=== PATIENT | female | born 1930 | race Two or more races ===

== ENCOUNTER 2016-11-27 10:30 | Inpatient (IN) | payer MEDICARE, BC ==
[2016-11-27 13:49] LABS: Hematocrit 38 % (35-47); Hemoglobin 12.7 g/dl (12.0-16.0); Mean Corpuscular HGB Conc 33 g/dl (31-36); Mean Corpuscular Hemoglobin 34 pg (27-31); Mean Corpuscular Volume 101 fL (80-97); Mean Platelet Volume 10 um3 (7.4-10.4); Red Blood Count 3.79 10^6/ul (4.0-5.4); Red Cell Distribution Width 14 % (10.5-15)
--- NOTE | 2016-11-27 13:58 | RAD ---
INDICATION: Short of breath COMPARISON: April 13, 2010 TECHNIQUE: An AP portable view obtained at 1335 hours is submitted. FINDINGS: Bones/Soft Tissues: There are no acute bony findings. Cardiomediastinal: The cardiomediastinal silhouette is normal. Lungs: There is coarsening of interstitium. In part this is accentuated by shallow inspiratory effort. There is likely a component of mild interstitial congestion. Pleura: The spinal smaller subpleural effusion. Other: There is an apparent right-sided subdiaphragmatic lucency which could represent some diaphragmatic free air although this could also be related to lung marking. Initially suggest decubitus imaging of the abdomen. IMPRESSION: EXPIRATORY EXAMINATION WITH COARSENING OF INTERSTITIUM AND SUSPECTED MILD INTERSTITIAL CONGESTION. APPARENT RIGHT-SIDED SUBDIAPHRAGMATIC LUCENCY VERSUS ARTIFACT. SUGGEST DECUBITUS IMAGING OF THE ABDOMEN.
[2016-11-27 14:02] LABS: Albumin 3.8 g/dL (3.2-5.2); BUN/Creatinine Ratio 28.4 (8-20); C Reactive Protein 130.51 mg/L (< 5.00); Calcium 10.5 mg/dL (8.6-10.3); EGFR African American 86.4 (>60); EGFR Non-African American 67.2 (>60); Globulin 3.8 g/dL (2-4); Potassium 3.7 mmol/L (3.5-5.0); Total Bilirubin 1.1 mg/dL (0.2-1.0); Total Protein 7.6 g/dL (6.4-8.9)
[2016-11-27 14:03] LABS: Troponin I 0.03 ng/mL (<0.04)
[2016-11-27] MEDS ORDERED: Magnesium Sulfate 2 GM IV* 2 GM/50 ML BAG IVPB ONE (14:14)
[2016-11-27 14:57] LABS: Urine Bacteria 3+ (Absent); Urine Bilirubin Negative (Negative); Urine Glucose Negative (Negative); Urine Nitrite Negative (Negative)
--- NOTE | 2016-11-27 15:00 | RAD ---
HISTORY: Question free air, shortness of breath COMPARISONS: Chest film dated November 27, 2016 TECHNIQUE: Multiple contiguous axial CT scans were obtained of the chest, abdomen, and pelvis, without intravenous contrast enhancement. Coronal and sagittal multiplanar reformations are submitted for review.. Oral contrast was not administered. FINDINGS: The study is limited by the lack of intravenous contrast. This limits evaluation of the solid organs and vasculature. CHEST NECK AND THYROID: The lower neck and thyroid are unremarkable. CHEST WALL: There is no lower cervical, axillary, or supraclavicular lymphadenopathy by size criteria. HEART AND PERICARDIUM: The heart is unremarkable. AORTA AND PULMONARY VASCULATURE: There is calcification of the thoracic aorta. The pulmonary vasculature is unremarkable. MEDIASTINUM: There is no mediastinal lymphadenopathy by size criteria. ALECIA: Evaluation of the alecia is limited by the lack of intravenous contrast. There is no obvious hilar lymphadenopathy by size criteria. AIRWAY AND ESOPHAGUS: The airway is unremarkable, without endobronchial filling defect. The esophagus is grossly normal. LUNG PARENCHYMA: The lung volumes are low. There is minimal dependent atelectasis of the right lung base. PLEURA: There is elevation of the right hemidiaphragm. BONES AND SOFT TISSUES: There is diffuse osteopenia. There is a compression deformity of T6. There is no skin or osseous retropulsion. There is a scoliotic curvature of the spine ABDOMEN/PELVIS: LIVER: The liver is normal in shape, size, contour, and attenuation. BILE DUCTS: There is no intrahepatic or extrahepatic biliary dilatation. GALLBLADDER: The gallbladder is normal, without pericholecystic inflammatory change. PANCREAS: The pancreas is normal, without mass or ductal dilatation. SPLEEN: Normal in size and appearance. UPPER GI TRACT: Evaluation of the gastrointestinal tract is limited by incomplete gastric distention. The upper GI tract is unremarkable. SMALL BOWEL \T\ MESENTERY: The small bowel is normal in contour, course, and caliber. There is no obstruction or dilatation. COLON: The colon is normal in contour, course, caliber. There is no pericolonic inflammatory change. There is large stool within colon. ADRENALS: Normal bilaterally. KIDNEYS: The kidneys are normal in shape, size, contour, and axis. There is no hydronephrosis or nephrolithiasis. BLADDER: The bladder is smooth in contour. PELVIC ORGANS: The uterus and adnexa are grossly normal for technique. AORTA: There is calcific atherosclerotic disease of the abdominal aorta and its branches, without aneurysmal dilatation IVC: Unremarkable LYMPH NODES: There is no lymphadenopathy by size criteria. ABDOMINAL WALL: There is a right inguinal hernia containing loops of small bowel. BONES: There are bilateral pars defects at L5 with grade 2 anterolisthesis. There is a scoliotic curvature of the spine. There is diffuse osteopenia. There are diffuse degenerative changes. OTHER: There is no free intraperitoneal gas. IMPRESSION: 1. NO FREE INTRAPERITONEAL GAS. 2. DEPENDENT ATELECTASIS OF THE RIGHT LUNG BASE COULD 3. ELEVATION OF THE RIGHT HEMIDIAPHRAGM SUGGESTIVE OF DIAPHRAGMATIC PARALYSIS. 4. ATHEROSCLEROSIS. 5. RIGHT INGUINAL HERNIA CONTAINING LOOPS OF SMALL BOWEL, WITHOUT OBSTRUCTION. 6. LARGE AMOUNT OF STOOL WITHIN THE COLON. 7. 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 8. AGE-INDETERMINATE COMPRESSION DEFORMITY OF T6 WITHOUT SIGNIFICANT OSSEOUS RETROPULSION.
--- NOTE | 2016-11-27 15:38 | ED ---
Jolly Granger SooYoung, scribed for Peter Santiago MD on 11/27/16 at 1320 . Shortness of Breath - HPI Summary HPI Summary: A 86 y/o F presents to ED with c/o acute on chronic SOB onset past two days. She notes SOB being worse yesterday than today. Denies CP. She states her daughters wanted her to be looked at. She had a L rib injury occurring in October. Shes' had difficulty breathing since then and limited ROM of LUE. She also has limited use of RUE. Pt recently changed her heart medication. PMHx: afib, negative for: COPD, emphasema, asthma. Pt is not on home O2. - History of Current Complaint Chief Complaint: EDDysrhythmPalp Time Seen by Provider: 11/27/16 13:11 Hx Obtained From: Patient Onset/Duration: Lasting Days, Still Present - Allergy/Home Medications Allergies/Adverse Reactions: Allergies Allergy/AdvReac Type Severity Reaction Status Date / Time No Known Allergies Allergy Verified 11/27/16 10:30 Home Medications: Home Medications Acetaminophen [Acetaminophen Extra Stren] 500 mg PO BID PRN 11/27/16 [History Confirmed 11/27/16] Furosemide TAB* [Lasix TAB*] 20 mg PO DAILY 11/27/16 [History Confirmed 11/27/16 ] Rivaroxaban TAB(*) [Xarelto 20 mg] 20 mg PO DAILY 11/27/16 [History Confirmed ] PMH/Surg Hx/FS Hx/Imm Hx Previously Healthy: No Endocrine/Hematology History: Denies: Hx Diabetes, Hx Thyroid Disease Cardiovascular History: Reports: Hx Hypertension Respiratory History: Denies: Hx Asthma, Hx Chronic Obstructive Pulmonary Disease (COPD) GI History: Denies: Hx Ulcer - Surgical History Surgery Procedure, Year, and Place: HYSTERECTOMY. VERICOSE VEIN SURGERY - SEVERAL TIMES Infectious Disease History: No Infectious Disease History: Denies: Hx Clostridium Difficile, Hx Hepatitis, Hx Human Immunodeficiency Virus (HIV), Hx of Known/Suspected MRSA, Hx Shingles, Hx Tuberculosis, Hx Known/ Suspected VRE, Hx Known/Suspected VRSA, History Other Infectious Disease, Traveled Outside the [place] in Last 30 Days - Family History Known Family History: Positive: Cardiac Disease - Social History Occupation: Retired Lives: With Family Alcohol Use: Daily Alcohol Amount: 1-2 MIX DRINKS PER DAY Substance Use Type: Reports: None Smoking Status (MU): Never Smoked Tobacco Review of Systems Negative: Chest Pain Positive: Shortness Of Breath All Other Systems Reviewed And Are Negative: Yes Physical Exam - Summary Physical Exam Summary: Hermilo: well-appearing, no pain distress, LEANING TO RIGHT Skin: warm, skin color reflects, dry Head/Face: nml head/face inspection Eyes: EOMI, SONALI ENT: nml Neck: supple, non-tender Resp: CTA, breath sounds present, MILD RESPIRATORY DISTRESS Cardio: TACHY, IRREGULARLY IRREGULAR Abd: nontender, soft Bowel: present Musc: nml, strength/ROM intact, PEDAL EDEMA Neuro: nml, sensory/motor intact, A&O x 3 Psych: affect/mood appropriate Triage Information Reviewed: Yes Vital Signs On Initial Exam: Initial Vitals Temp Pulse Resp BP Pulse Ox 97.8 F 104 20 135/76 90 11/27/16 10:31 11/27/16 10:31 11/27/16 10:31 11/27/16 10:31 11/27/16 10:31 Vital Signs Reviewed: Yes Diagnostics - Vital Signs Vital Signs Temp Pulse Resp BP Pulse Ox 11/27/16 11:39 99.3 F 115 18 145/91 94 11/27/16 10:31 97.8 F 104 20 135/76 90 - Laboratory Lab Results: Lab Results 11/27/16 11/27/16 11/27/16 Range/Units 13:07 13:07 13:07 WBC 9.0 (3.5-10.8) 10^3/ul RBC 3.79 L (4.0-5.4) 10^6/ul Hgb 12.7 (12.0-16.0) g/dl Hct 38 (35-47) % MCV 101 H (80-97) fL MCH 34 H (27-31) pg MCHC 33 (31-36) g/dl RDW 14 (10.5-15) % Plt Count 214 (150-450) 10^3/ul MPV 10 (7.4-10.4) um3 Neut % (Auto) 80.4 (38-83) % Lymph % (Auto) 7.2 L (25-47) % [place] % (Auto) 12.2 H (1-9) % Eos % (Auto) 0 (0-6) % Baso % (Auto) 0.2 (0-2) % Absolute Neuts (auto) 7.2 (1.5-7.7) 10^3/ul Absolute Lymphs (auto) 0.6 L (1.0-4.8) 10^3/ul Absolute Monos (auto) 1.1 H (0-0.8) 10^3/ul Absolute Eos (auto) 0 (0-0.6) 10^3/ul Absolute Basos (auto) 0 (0-0.2) 10^3/ul Absolute Nucleated RBC 0 10^3/ul Nucleated RBC % 0 INR (Anticoag Therapy) 3.39 H (0.89-1.11) APTT 48.2 H (26.0-36.3) seconds D-Dimer, Quantitative 533 H (Less Than 230) ng/mL Sodium 134 (133-145) mmol/L Potassium 3.7 (3.5-5.0) mmol/L Chloride 92 L (101-111) mmol/L Carbon Dioxide 34 H (22-32) mmol/L Anion Gap 8 (2-11) mmol/L BUN 23 (6-24) mg/dL Creatinine 0.81 (0.51-0.95) mg/dL Est GFR ( Amer) 86.4 (>60) Est GFR (Non-Af Amer) 67.2 (>60) BUN/Creatinine Ratio 28.4 H (8-20) Glucose 112 H (70-100) mg/dL Lactic Acid (0.5-2.0) mmol/L Calcium 10.5 H (8.6-10.3) mg/dL Magnesium 1.0 L (1.9-2.7) mg/dL Total Bilirubin 1.10 H (0.2-1.0) mg/dL AST 22 (13-39) U/L ALT 16 (7-52) U/L Alkaline Phosphatase 172 H (34-104) U/L Total Creatine Kinase 85 (10-223) U/L CK-MB (CK-2) 5.5 (0.6-6.3) ng/mL Troponin I 0.03 (<0.04) ng/mL C-Reactive Protein 130.51 H (< 5.00) mg/L B-Natriuretic Peptide ( - 100) pg/mL Total Protein 7.6 (6.4-8.9) g/dL Albumin 3.8 (3.2-5.2) g/dL Globulin 3.8 (2-4) g/dL Albumin/Globulin Ratio 1.0 (1-3) Lipase 28 (11.0-82.0) U/L TSH 1.00 (0.34-5.60) mcIU/mL Urine Color Urine Appearance Urine pH (5-9) Ur Specific [place] (1.010-1.030) Urine Protein (Negative) Urine Ketones (Negative) Urine Blood (Negative) Urine Nitrate (Negative) Urine Bilirubin (Negative) Urine Urobilinogen (Negative) Ur Leukocyte Esterase (Negative) Urine WBC (Auto) (Absent) Urine RBC (Auto) (Absent) Ur Squamous Epith Cells (Absent) Urine Bacteria (Absent) Urine Glucose (Negative) 11/27/16 11/27/16 11/27/16 Range/Units 13:07 13:07 14:45 WBC (3.5-10.8) 10^3/ul RBC (4.0-5.4) 10^6/ul Hgb (12.0-16.0) g/dl Hct (35-47) % MCV (80-97) fL MCH (27-31) pg MCHC (31-36) g/dl RDW (10.5-15) % Plt Count (150-450) 10^3/ul MPV (7.4-10.4) um3 Neut % (Auto) (38-83) % Lymph % (Auto) (25-47) % [place] % (Auto) (1-9) % Eos % (Auto) (0-6) % Baso % (Auto) (0-2) % Absolute Neuts (auto) (1.5-7.7) 10^3/ul Absolute Lymphs (auto) (1.0-4.8) 10^3/ul Absolute Monos (auto) (0-0.8) 10^3/ul Absolute Eos (auto) (0-0.6) 10^3/ul Absolute Basos (auto) (0-0.2) 10^3/ul Absolute Nucleated RBC 10^3/ul Nucleated RBC % INR (Anticoag Therapy) (0.89-1.11) APTT (26.0-36.3) seconds D-Dimer, Quantitative (Less Than 230) ng/mL Sodium (133-145) mmol/L Potassium (3.5-5.0) mmol/L Chloride (101-111) mmol/L Carbon Dioxide (22-32) mmol/L Anion Gap (2-11) mmol/L BUN (6-24) mg/dL Creatinine (0.51-0.95) mg/dL Est GFR ( Amer) (>60) Est GFR (Non-Af Amer) (>60) BUN/Creatinine Ratio (8-20) Glucose (70-100) mg/dL Lactic Acid 1.3 (0.5-2.0) mmol/L Calcium (8.6-10.3) mg/dL Magnesium (1.9-2.7) mg/dL Total Bilirubin (0.2-1.0) mg/dL AST (13-39) U/L ALT (7-52) U/L Alkaline Phosphatase (34-104) U/L Total Creatine Kinase (10-223) U/L CK-MB (CK-2) (0.6-6.3) ng/mL Troponin I (<0.04) ng/mL C-Reactive Protein (< 5.00) mg/L B-Natriuretic Peptide 279 H ( - 100) pg/mL Total Protein (6.4-8.9) g/dL Albumin (3.2-5.2) g/dL Globulin (2-4) g/dL Albumin/Globulin Ratio (1-3) Lipase (11.0-82.0) U/L TSH (0.34-5.60) mcIU/mL Urine Color Sara Urine Appearance Cloudy Urine pH 5.0 (5-9) Ur Specific [place] 1.025 (1.010-1.030) Urine Protein 2+(100 mg/dl) H (Negative) Urine Ketones Negative (Negative) Urine Blood 1+ H (Negative) Urine Nitrate Negative (Negative) Urine Bilirubin Negative (Negative) Urine Urobilinogen Negative (Negative) Ur Leukocyte Esterase 2+ H (Negative) Urine WBC (Auto) 2+(11-20/hpf) H (Absent) Urine RBC (Auto) Absent (Absent) Ur Squamous Epith Cells Present H (Absent) Urine Bacteria 3+ H (Absent) Urine Glucose Negative (Negative) Result Diagrams: 11/27/16 13:07 11/27/16 13:07 Lab Statement: Any lab studies that have been ordered have been reviewed, and results considered in the medical decision making process. - Radiology CXR Xray Interpretation: Positive (See Comments) - IMPRESSION: EXPIRATORY EXAMINATION WITH COARSENING OF INTERSTITIUM AND SUSPECTED MILD INTERSTITIAL CONGESTION. APPARENT RIGHT-SIDED SUBDIAPHRAGMATIC LUCENCY VERSUS ARTIFACT. SUGGEST DECUBITUS IMAGING OF THE ABDOMEN. Radiology Interpretation Completed By: Radiologist - EKG 1 ST Segment: Normal EKG Interpretation: Rapid afib, 109 bpm, Course/Dx - Course Assessment/Plan: ADMIT HOSPITALIST STABLE. - Diagnoses Provider Diagnoses: UTI (urinary tract infection), Weakness, Dyspnea, Thoracic compression fracture - Physician Notifications Discussed Care of Patient With: Dr. Castillo, hospitalist Time Discussed With Above Provider: 14:15 Instructed by Provider To: Admit As Inpatient Discharge - Discharge Plan Condition: Stable Disposition: ADMITTED TO [facility] Referrals: Danyell De La Garza MD [Primary Care Provider] - The documentation as recorded by the Jolly griffith SooYoung accurately reflects the service I personally performed and the decisions made by me, Peter Santiago MD.
[2016-11-27] MEDS ORDERED: Acetaminophen TAB* 325 MG PO PRN (16:08)
[2016-11-27] MEDS ORDERED: Ondansetron INJ* 2 MG/ML VIAL IV PRN (16:08)
[2016-11-27] MEDS ORDERED: Metoprolol Tartrate TAB* 25 MG PO ONE (16:09)
[2016-11-27] MEDS ORDERED: Senna TAB PO PRN (16:12)
[2016-11-27] MEDS ORDERED: Docusate CAP* 100 MG PO PRN (16:12)
[2016-11-27] MEDS ORDERED: Metoprolol Tartrate IV* 1 MG/ML 5 ML VIAL IV PRN ×2 (16:21→20:00)
[2016-11-27] MEDS: cefTRIAXone VIAL(*) 1,000 MG in NS 0.9% 50 ML* 50 ML IVPB SCH (17:16)
--- NOTE | 2016-11-27 21:23 | HP ---
ADMISSION HISTORY AND PHYSICAL: DATE OF ADMISSION: 11/27/16 PRIMARY CARE PROVIDER: Danyell De La Garza MD HEALTHCARE PROXY: . CODE STATUS: Full, discussed with the patient and her . SOURCE OF INFORMATION: History obtained from interview with the patient and her . RELIABILITY: Poor. CHIEF COMPLAINT: Shortness of breath. HISTORY OF PRESENT ILLNESS: This is an 86-year-old female with past medical history of atrial fibrillation, reported several weeks of increasing shortness of breath that was worse today. She reports a fall last night after walking out of the bathroom, tried to sit on the couch, but sat in the wrong place. She is unable to relay any other specific symptoms that are bothering her. She has had no urinary frequency, hesitancy or dysuria. She denies any cough, sputum production, fevers, chills, night sweats, nausea, vomiting, or changes in her p.o. intake. She does note that she has been eating less. She denies any recent changes in her medication except for change from Coumadin to a NOAC. When seen by this author in the emergency room, she had no complaints, denied shortness of breath, although would not compare her breathing symptoms now to when she decided to come to the emergency room. Her reports that they called the clinic who advised them to come to the emergency room, although they could not indicate whether this was Dr. Danyell De La Garza's clinic who advised them to come to the emergency room and for what symptoms other than increasing shortness of breath over the last several weeks. PAST MEDICAL HISTORY: Atrial fibrillation, history of total abdominal hysterectomy, and varicose vein. MEDICATIONS: Uses [facility] in [place]. HOME MEDICATIONS: Include: 1. Xarelto 20 mg daily. 2. Ramipril 10 mg daily. 3. Metoprolol succinate XL 50 mg daily. 4. Lasix 20 mg daily. 5. Acetaminophen 500 mg twice daily as needed for pain. ALLERGIES: No known drug allergies. FAMILY HISTORY: Sister had CAD, mother had ovarian cancer. SOCIAL HISTORY: No tobacco. Drinks less than one alcoholic drink per day. Lives at home with her . REVIEW OF SYSTEMS: As per HPI, largely inconsistent. Otherwise, all others are negative. PHYSICAL EXAMINATION GENERAL: Elderly woman, sitting up in bed, in no apparent distress, talkative, talking in complete sentences, does not use accessory muscles for respiration. VITAL SIGNS: When seen by this author 163/102, heart rate 95, respiratory rate of 22, 100% on 2 L face mask titrated down from 4 L. HEENT: Oropharynx is clear. Moist mucous membranes. Sclerae anicteric. LUNGS: Clear to auscultation throughout. HEART: She has an irregularly irregular tachycardic heart rate. ABDOMEN: Soft, mildly distended, nontender. Positive bowel sounds. EXTREMITIES: Warm and well perfused. She has 2+ lower extremity edema to above the knees. She is alert and oriented x2 to person and place, but not year. Largely has difficulty following the direction of the conversation. DIAGNOSTIC STUDIES/LAB DATA: Labs reviewed. Urine is positive for protein, blood, leukocyte esterase, white blood cells and 3+ bacteria as well as squamous epithelial cells. BUN is 23, creatinine is 0.81, glucose 112. Total magnesium 1.0, repleted in the emergency room. CRP is 130 with BNP of 279. INR is 3.39. D- dimer is 533, on Xarelto. Hemoglobin 12.7, platelets 214, white blood cell count 9. Data reviewed: EKG: Atrial fibrillation with a ventricular rate of 109. No ST or T-wave changes. CT of the chest, abdomen and pelvis. Impression: No free intraperitoneal gas. Dependent atelectasis of the right lung base. Elevation of the right hemidiaphragm suggested diaphragmatic paralysis. Atherosclerosis. Right inguinal hernia containing loops of small bowel without obstruction. A large amount of stool within the colon. Bilateral pars defect at L5 with grade 2 anterolisthesis of L5- S1. Age indeterminate compression deformity of the T6 without significant serious retropulsion. ASSESSMENT AND PLAN: This is an 86-year-old female with past medical history of atrial fibrillation, presented to the hospital with increasing shortness of breath. Findings as indicated above. 1. Shortness of breath, potentially atelectasis versus consolidation versus congestive heart failure in the setting of atrial fibrillation. Diaphragmatic paralysis possibly contributing in the setting of deconditioning. It could be new. Original chest x-ray was consistent with congestive heart failure. CAT scan was consistent. We will continue with home Lasix at this time without additional dosing now. Check transthoracic echocardiogram for further evaluation. We will try for tighter control of her heart rate to optimize forward flow. Treat her with ceftriaxone for potential consolidation as well as potential urinary source. Doubt pulmonary embolism in the setting of Xarelto use as well as supratherapeutic INR on Xarelto, recently transitioned from Coumadin. 2. Urinary tract infection. Contaminated with squamous epithelial cells, although still appears consistent. Has no symptoms, although might not expect in this age range. Ceftriaxone as above. 3. Atrial fibrillation. Continue 50 mg of metoprolol succinate, add additional 25 mg tartrate now. Additional IV if needed. Target rate less than 120. 4. Lower extremity swelling. It has been longstanding, suspect in the setting of congestive heart failure. Continue Lasix as above and wrap bilateral lower extremities in Mike bandages. 5. Constipation as evidenced on CAT scan. Start Colace and senna. 6. Physical deconditioning with recent fall. PT evaluation. 7. DVT prophylaxis, Xarelto. 8. Code status is full. Discussed with patient. CC: Danyell De La Garza MD * [id number]/CPS #: [id number] MTDD
[2016-11-28] MEDS: Ramipril CAP* 10 MG PO SCH (08:43)
[2016-11-28] MEDS: Furosemide TAB* 20 MG PO SCH (08:43)
[2016-11-28] MEDS: Rivaroxaban TAB(*) 20 MG TAB PO SCH (08:43)
[2016-11-28] MEDS ORDERED: Metoprolol Succinate XL TAB* 50 MG PO SCH (09:00)
--- NOTE | 2016-11-28 15:25 | ECHO ---
Patient: MIAN MOSQUEDA [facility] Rec#: [id number] : 1930 Date: 11/28/2016 Age: 86y Height: 160.02 cm / 63.0 in Weight: 64.86 kg / 143.0 lbs Sex: F BSA: 1.68 Room#: [facility] Admit Date#: 11/27/2016 Type: Inpatient Referring: Jorje Castillo MD Reading: uSkhwinder Upton MD Cosmetic Consultant: Cydney Carrillo Cosmetic Consultant: Shalini Vo RN RDCS CC: Danyell De La Garza MD Transthoracic Echocardiogram Indication: CHF, Dyspnea BP: 132/97 HR: 107 Rhythm: A-Fib Findings History: A-Fib. Technical Comments: The study is technically limited due to patient body habitus. The study was technically limited due to the patient's inability to lay in the left lateral decubitus position. Completed at 1455. Left Ventricle: The left ventricular chamber size is normal. There is normal left ventricular systolic function. The estimated ejection fraction is 55-60%. There is septal flattening of the interventricular septum consistent with right ventricular volume or pressure overload. The assessment of diastolic function is non-diagnostic. Left Atrium: The left atrium is mild to moderately dilated. Right Ventricle: The right ventricle is mildly dilated. The right ventricular global systolic function is mildly reduced. Right Atrium: The right atrium is moderately dilated. Aortic Valve: The aortic valve is trileaflet. The aortic valve leaflets are mildly thickened. There is trace to mild aortic regurgitation. There is no evidence of aortic stenosis. Mitral Valve: There is mitral annular calcification. The mitral valve leaflets are moderately thickened. There is moderate mitral regurgitation. There is no evidence of mitral stenosis. Tricuspid Valve: The tricuspid valve leaflets are mildly thickened. There is mild to moderate tricuspid regurgitation. There is evidence of moderate pulmonary hypertension. There is no tricuspid stenosis. Pulmonic Valve: The pulmonic valve appears normal. There is trace to mild pulmonic regurgitation. There is no pulmonic stenosis. Pericardium: There is no significant pericardial effusion. Aorta: There is borderline dilatation of the ascending aorta. The aortic arch is not well visualized. There is no dilation of the aortic root. Pulmonary Artery: The main pulmonary artery is not well visualized. Venous: The inferior vena cava appears normal in size. There is less than 50% respiratory change in the inferior vena cava dimension. Summary: There are no significant changes when compared to the previous study done on 11/09/15 Conclusions There is normal left ventricular systolic function. The estimated ejection fraction is 55-60%. There is septal flattening of the interventricular septum consistent with right ventricular volume or pressure overload. The right ventricular global systolic function is mildly reduced. The aortic valve leaflets are mildly thickened. There is trace to mild aortic regurgitation. The mitral valve leaflets are moderately thickened. There is moderate mitral regurgitation. There is mild to moderate tricuspid regurgitation. There is evidence of moderate pulmonary hypertension. There is no significant pericardial effusion. There are no significant changes when compared to the previous study done on 11/09/15 Measurements Name Value Normal Range RVDdMajor (2D) 4.8 cm (2.2 - 4.4) RAd ISD 4CH 6 cm (3.4 - 4.9) RA (A4C)W 5.8 cm (2.9 - 4.6) IVSd (2D) 0.9 cm (0.6 - 1) LVPWd (2D) 0.9 cm (0.6 - 1) LVIDd (2D) 4.4 cm (3.6 - 5.4) LVIDs (2D) 2.8 cm - LV FS (2D) 36 % (25 - 45) Aortic Annulus 2 cm (1.4 - 2.6) Ao root diameter (2D) 2.6 cm (2.1 - 3.5) Ascending Ao 3.4 cm (2.1 - 3.4) LA dimension (AP) 2D 4.5 cm (2.3 - 3.8) LAd ISD 4CH 5.7 cm (2.9 - 5.3) LA ISD 4CH W 4 cm (2.5 - 4.5) Name Value Normal Range LA ESV SP 4CH (A/L) 61 ml - LA ESV SP 2CH (A/L) 72 ml - LA ESV BP (A/L) 69 ml - LA ESV BP (A/L) index 41 ml/m2 - LA ESV SP 4CH (MOD) 56 ml - LA ESV SP 2CH (MOD) 66 ml - Name Value Normal Range MV E-wave Vmax 0.9 m/sec - MV deceleration time 119 msec - LV septal e' Vmax 0.08 m/sec - LV lateral e' Vmax 0.16 m/sec - LV E:e' septal ratio 11.3 ratio - LV E:e' lateral ratio 5.6 ratio - Name Value Normal Range AV Vmax 0.9 m/sec - AV VTI 14.49 cm - AV peak gradient 3.29 mmHg - AV mean gradient 2.52 mmHg - LVOT Vmax 0.7 m/sec - LVOT VTI 12.07 cm - LVOT peak gradient 1.91 mmHg - LVOT mean gradient 1.02 mmHg - Name Value Normal Range TR Vmax 3.1 m/sec - TR peak gradient 38 mmHg - RAP 8 mmHg - RVSP 46 mmHg - IVC diameter 2.1 cm - Name Value Normal Range PV Vmax 0.6 m/sec - PV peak gradient 1.2 mmHg -
[2016-11-28] MEDS: cefTRIAXone VIAL(*) 1,000 MG in NS 0.9% 50 ML* 50 ML IVPB SCH (16:37)
--- NOTE | 2016-11-28 16:39 | PN ---
Subjective Date of Service: 11/28/16 Interval History: Patient seen and examined at bedside. Family at bedside. Her daughter reports that patient sustained a fall approx 1 month ago and has experienced back pain. There is concern for increased SOB. Patient states, "I don't know why they made me come" though she admits to not using O2 at home. She denies CP, SOB at rest, abd pain, n/v. She has BLE edema that she thinks "looks normal." Tele: Afib 100s-110s Family History: Unchanged from Admission Social History: Unchanged from Admission Past Medical History: Unchanged from Admission Objective Active Medications: Acetaminophen (Tylenol Tab*) 650 mg PO Q6H PRN PRN Reason: PAIN Docusate Sodium (Colace Cap*) 200 mg PO DAILY PRN PRN Reason: CONSTIPATION Furosemide (Lasix Tab*) 20 mg PO DAILY [facility] Last Admin: 11/28/16 08:43 Dose: 20 mg Ceftriaxone Sodium 1,000 mg/ (Sodium Chloride) 50 mls @ 200 mls/hr IVPB Q24H [facility] Last Admin: 11/27/16 17:16 Dose: 200 mls/hr Metoprolol Succinate (Toprol Xl Tab*) 50 mg PO DAILY [facility] Last Admin: 11/28/16 08:43 Dose: 50 mg Metoprolol Tartrate (Lopressor Iv*) 5 mg IV Q6H PRN PRN Reason: HEART RATE/PULSE Ondansetron HCl (Zofran Inj*) 4 mg IV Q4H PRN PRN Reason: NAUSEA Ramipril (Altace Cap*) 10 mg PO DAILY [facility] Last Admin: 11/28/16 08:43 Dose: 10 mg Rivaroxaban (Xarelto (*)) 20 mg PO DAILY [facility] Last Admin: 11/28/16 08:43 Dose: 20 mg Senna (Senokot Tab*) 1 tab PO BEDTIME PRN PRN Reason: CONSTIPATION Vital Signs 11/27/16 11/27/16 11/27/16 17:00 17:30 18:20 Temperature 98.1 F Pulse Rate 113 131 103 Respiratory 30 26 22 Rate Blood Pressure 128/109 173/85 137/81 (mmHg) O2 Sat by Pulse 96 99 100 Oximetry 11/27/16 11/27/16 11/27/16 18:48 18:56 20:00 Temperature Pulse Rate Respiratory 22 22 22 Rate Blood Pressure (mmHg) O2 Sat by Pulse Oximetry 11/27/16 11/27/16 11/28/16 20:06 23:45 03:37 Temperature 98.1 F 98.3 F 97.3 F Pulse Rate 137 93 112 Respiratory 18 16 18 Rate Blood Pressure 135/82 136/80 125/69 (mmHg) O2 Sat by Pulse 98 100 100 Oximetry 11/28/16 11/28/16 11/28/16 07:16 07:50 11:23 Temperature 98.0 F 98.2 F Pulse Rate 95 100 Respiratory 16 20 16 Rate Blood Pressure 132/79 106/70 (mmHg) O2 Sat by Pulse 100 100 Oximetry 11/28/16 11/28/16 14:48 15:17 Temperature 98.3 F Pulse Rate 97 Respiratory 20 Rate Blood Pressure 124/78 (mmHg) O2 Sat by Pulse 97 99 Oximetry Oxygen Devices in Use Now: Nasal Cannula - 2Lnc Eyes: PERRLA Ears/Nose/Mouth/Throat: Clear Oropharnyx, Mucous Membranes Moist Neck: NL Appearance and Movements; NL JVP Respiratory: Symmetrical Chest Expansion and Respiratory Effort, Clear to Auscultation Cardiovascular: NL Sounds; No Murmurs; No JVD - irregularly irregular, tachycardic, - - 2+ BLE edema Abdominal: NL Sounds; No Tenderness; No Distention Extremities: No Clubbing, Cyanosis Skin: No Rash or Ulcers Neurological: - - Alert, oriented to self, place. Poor historian, unsure of insight into current situation Lines/Tubes/Other Access: Clean, Dry and Intact Peripheral IV Nutrition: Taking PO's Result Diagrams: 11/27/16 13:07 11/27/16 13:07 Additional Lab and Data: Lab Results 11/27/16 11/27/16 11/27/16 Range/Units 13:07 13:07 13:07 WBC 9.0 (3.5-10.8) 10^3/ul RBC 3.79 L (4.0-5.4) 10^6/ul Hgb 12.7 (12.0-16.0) g/dl Hct 38 (35-47) % MCV 101 H (80-97) fL MCH 34 H (27-31) pg MCHC 33 (31-36) g/dl RDW 14 (10.5-15) % Plt Count 214 (150-450) 10^3/ul MPV 10 (7.4-10.4) um3 Neut % (Auto) 80.4 (38-83) % Lymph % (Auto) 7.2 L (25-47) % Terrell % (Auto) 12.2 H (1-9) % Eos % (Auto) 0 (0-6) % Baso % (Auto) 0.2 (0-2) % Absolute Neuts (auto) 7.2 (1.5-7.7) 10^3/ul Absolute Lymphs (auto) 0.6 L (1.0-4.8) 10^3/ul Absolute Monos (auto) 1.1 H (0-0.8) 10^3/ul Absolute Eos (auto) 0 (0-0.6) 10^3/ul Absolute Basos (auto) 0 (0-0.2) 10^3/ul Absolute Nucleated RBC 0 10^3/ul Nucleated RBC % 0 INR (Anticoag Therapy) 3.39 H (0.89-1.11) APTT 48.2 H (26.0-36.3) seconds D-Dimer, Quantitative 533 H (Less Than 230) ng/mL Sodium 134 (133-145) mmol/L Potassium 3.7 (3.5-5.0) mmol/L Chloride 92 L (101-111) mmol/L Carbon Dioxide 34 H (22-32) mmol/L Anion Gap 8 (2-11) mmol/L BUN 23 (6-24) mg/dL Creatinine 0.81 (0.51-0.95) mg/dL Est GFR ( Amer) 86.4 (>60) Est GFR (Non-Af Amer) 67.2 (>60) BUN/Creatinine Ratio 28.4 H (8-20) Glucose 112 H (70-100) mg/dL Lactic Acid (0.5-2.0) mmol/L Calcium 10.5 H (8.6-10.3) mg/dL Magnesium 1.0 L (1.9-2.7) mg/dL Total Bilirubin 1.10 H (0.2-1.0) mg/dL AST 22 (13-39) U/L ALT 16 (7-52) U/L Alkaline Phosphatase 172 H (34-104) U/L Total Creatine Kinase 85 (10-223) U/L CK-MB (CK-2) 5.5 (0.6-6.3) ng/mL Troponin I 0.03 (<0.04) ng/mL C-Reactive Protein 130.51 H (< 5.00) mg/L B-Natriuretic Peptide ( - 100) pg/mL Total Protein 7.6 (6.4-8.9) g/dL Albumin 3.8 (3.2-5.2) g/dL Globulin 3.8 (2-4) g/dL Albumin/Globulin Ratio 1.0 (1-3) Lipase 28 (11.0-82.0) U/L TSH 1.00 (0.34-5.60) mcIU/mL Urine Color Urine Appearance Urine pH (5-9) Ur Specific [place] (1.010-1.030) Urine Protein (Negative) Urine Ketones (Negative) Urine Blood (Negative) Urine Nitrate (Negative) Urine Bilirubin (Negative) Urine Urobilinogen (Negative) Ur Leukocyte Esterase (Negative) Urine WBC (Auto) (Absent) Urine RBC (Auto) (Absent) Ur Squamous Epith Cells (Absent) Urine Bacteria (Absent) Urine Glucose (Negative) 11/27/16 11/27/16 11/27/16 Range/Units 13:07 13:07 14:45 WBC (3.5-10.8) 10^3/ul RBC (4.0-5.4) 10^6/ul Hgb (12.0-16.0) g/dl Hct (35-47) % MCV (80-97) fL MCH (27-31) pg MCHC (31-36) g/dl RDW (10.5-15) % Plt Count (150-450) 10^3/ul MPV (7.4-10.4) um3 Neut % (Auto) (38-83) % Lymph % (Auto) (25-47) % Terrell % (Auto) (1-9) % Eos % (Auto) (0-6) % Baso % (Auto) (0-2) % Absolute Neuts (auto) (1.5-7.7) 10^3/ul Absolute Lymphs (auto) (1.0-4.8) 10^3/ul Absolute Monos (auto) (0-0.8) 10^3/ul Absolute Eos (auto) (0-0.6) 10^3/ul Absolute Basos (auto) (0-0.2) 10^3/ul Absolute Nucleated RBC 10^3/ul Nucleated RBC % INR (Anticoag Therapy) (0.89-1.11) APTT (26.0-36.3) seconds D-Dimer, Quantitative (Less Than 230) ng/mL Sodium (133-145) mmol/L Potassium (3.5-5.0) mmol/L Chloride (101-111) mmol/L Carbon Dioxide (22-32) mmol/L Anion Gap (2-11) mmol/L BUN (6-24) mg/dL Creatinine (0.51-0.95) mg/dL Est GFR ( Amer) (>60) Est GFR (Non-Af Amer) (>60) BUN/Creatinine Ratio (8-20) Glucose (70-100) mg/dL Lactic Acid 1.3 (0.5-2.0) mmol/L Calcium (8.6-10.3) mg/dL Magnesium (1.9-2.7) mg/dL Total Bilirubin (0.2-1.0) mg/dL AST (13-39) U/L ALT (7-52) U/L Alkaline Phosphatase (34-104) U/L Total Creatine Kinase (10-223) U/L CK-MB (CK-2) (0.6-6.3) ng/mL Troponin I (<0.04) ng/mL C-Reactive Protein (< 5.00) mg/L B-Natriuretic Peptide 279 H ( - 100) pg/mL Total Protein (6.4-8.9) g/dL Albumin (3.2-5.2) g/dL Globulin (2-4) g/dL Albumin/Globulin Ratio (1-3) Lipase (11.0-82.0) U/L TSH (0.34-5.60) mcIU/mL Urine Color Sara Urine Appearance Cloudy Urine pH 5.0 (5-9) Ur Specific [place]rie 1.025 (1.010-1.030) Urine Protein 2+(100 mg/dl) H (Negative) Urine Ketones Negative (Negative) Urine Blood 1+ H (Negative) Urine Nitrate Negative (Negative) Urine Bilirubin Negative (Negative) Urine Urobilinogen Negative (Negative) Ur Leukocyte Esterase 2+ H (Negative) Urine WBC (Auto) 2+(11-20/hpf) H (Absent) Urine RBC (Auto) Absent (Absent) Ur Squamous Epith Cells Present H (Absent) Urine Bacteria 3+ H (Absent) Urine Glucose Negative (Negative) Assess/Plan/Problems-Billing Assessment: Ms. Weaver is a 86 yo female with a PMH of chronic atrial fibrillation, esophagitis, gastritis, anemia, angiodysplasia, and HTN who presented to the ED on 11/27/16 with SOB and incidental finding of UTI. - Patient Problems (1) Shortness of breath Code(s): R06.02 - SHORTNESS OF BREATH Comment: ? 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 Able to wean O2 from 4 to 2Lnc. Continue to attempt O2 weaning as she previously was not on O2. Rate control for atrial fibrillation Echo shows EF 55-60% and LV function and evidence of reduced RV systolic function. Patient's baseline weight per PCP office is 142; patient does not weigh self so unsure if any recent weight changes. Continue home furosemide dosing. (2) UTI (urinary tract infection) Comment: Urine culture growing E. coli Continue ceftriaxone. (3) Chronic atrial fibrillation Code(s): I48.2 - CHRONIC ATRIAL FIBRILLATION Comment: HR 110s to 120s mostly, while resting. May be contributing to respiratory status and CHF. Give additional 25 mg today and increase to 75 mg Toprol XL tomorrow, closely watching BP. Continue rivaroxaban. (4) Bilateral lower extremity edema Code(s): R60.0 - LOCALIZED EDEMA Comment: Continue furosemide. Daughter brought in home lymphedema sleeves, which are in place. (5) Constipation Code(s): K59.00 - CONSTIPATION, UNSPECIFIED Comment: Promote ambulation. Miralax daily. Continue prn MOM, senna, colace. (6) Physical deconditioning Code(s): R53.81 - OTHER MALAISE Comment: Secondary to back injury sustained a month ago when attempting to help up from the floor. PT/OT Supportive care (7) DVT prophylaxis Code(s): KLL3402 - Comment: Xarelto Status and Disposition: Inpatient admission. Anticipate LOS >2 days.
[2016-11-28] MEDS ORDERED: Magnesium Hydroxide LIQ* 30 ML UDC PO PRN (17:29)
[2016-11-28] MEDS ORDERED: Metoprolol Tartrate TAB* 25 MG PO ONE (17:33)
[2016-11-28] MEDS: Polyethylene Glycol 3350* 17 GM PACKET PO SCH (17:55)
[2016-11-29 05:56] LABS: Hematocrit 34 % (35-47); Hemoglobin 11.4 g/dl (12.0-16.0); Mean Corpuscular HGB Conc 33 g/dl (31-36); Mean Corpuscular Hemoglobin 34 pg (27-31); Mean Corpuscular Volume 101 fL (80-97); Mean Platelet Volume 10 um3 (7.4-10.4); Red Blood Count 3.39 10^6/ul (4.0-5.4); Red Cell Distribution Width 14 % (10.5-15); White Blood Count 6.8 10^3/ul (3.5-10.8)
[2016-11-29 06:09] LABS: Calcium 9.3 mg/dL (8.6-10.3); EGFR African American 150.8 (>60); EGFR Non-African American 117.3 (>60); Potassium 3.9 mmol/L (3.5-5.0)
[2016-11-29] MEDS ORDERED: Metoprolol Succinate XL TAB* 25 MG PO SCH (09:00)
[2016-11-29] MEDS: Polyethylene Glycol 3350* 17 GM PACKET PO SCH (11:14)
[2016-11-29] MEDS: Furosemide TAB* 20 MG PO SCH (11:15)
[2016-11-29] MEDS: Rivaroxaban TAB(*) 20 MG TAB PO SCH (11:15)
[2016-11-29] MEDS: Ramipril CAP* 10 MG PO SCH (11:15)
[2016-11-29] MEDS ORDERED: Metoprolol Tartrate TAB* 25 MG PO ONE (14:20)
[2016-11-29] MEDS ORDERED: Iohexol 350* (CONTRAST) 500 ML MDV IV ONE (16:03)
--- NOTE | 2016-11-29 16:56 | RAD ---
Indication: Evaluate for pulmonary embolus. Contrast: Administered 60.8 ml of OMNIPAQUE 350 mgi/ml CTA of the chest was performed after IV contrast administration. Coronal and sagittal reconstructed images were obtained. The pulmonary arterial tree is well opacified. There are no filling defects present to suggest pulmonary embolus. There is right lower lobe atelectasis or consolidation.. Small bilateral pleural effusions are noted. The trachea and major bronchi appear patent. No evidence of gross spiculated lesions are noted. The visualized abdominal organs are otherwise unremarkable. No mediastinal or hilar adenopathy is noted. The heart demonstrates no pericardial effusion. IMPRESSION: No evidence of pulmonary embolus is noted. There is right lower lobe consolidation or atelectasis with small pleural effusions bilaterally.
[2016-11-29] MEDS: cefTRIAXone VIAL(*) 1,000 MG in NS 0.9% 50 ML* 50 ML IVPB SCH (17:18)
--- NOTE | 2016-11-29 18:57 | PN ---
Subjective Date of Service: 11/29/16 Interval History: This is an 86 yo female with a h/o chronic afib who presented with c/o SOB. She had a rapid rate noted on admission and atelectasis on imaging with evidence of UTI. Patient has been treated by increasing her BB and continued diuresis. Patient reports that she may feel slightly better then she did at the time of admission. She is still requiring supp O2 and becomes dyspneic with routine conversation. She has not history of chronic lung disease. Objective Active Medications: Acetaminophen (Tylenol Tab*) 650 mg PO Q6H PRN PRN Reason: PAIN Docusate Sodium (Colace Cap*) 200 mg PO DAILY PRN PRN Reason: CONSTIPATION Furosemide (Lasix Tab*) 20 mg PO DAILY [facility] Last Admin: 11/29/16 11:15 Dose: 20 mg Ceftriaxone Sodium 1,000 mg/ (Sodium Chloride) 50 mls @ 200 mls/hr IVPB Q24H [facility] Last Admin: 11/29/16 17:18 Dose: 200 mls/hr Azithromycin 500 mg/ Sodium (Chloride) 250 mls @ 250 mls/hr IVPB Q24H [facility] Magnesium Hydroxide (Milk Of [place] Liq*) 30 ml PO Q6H PRN PRN Reason: CONSTIPATION Metoprolol Succinate (Toprol Xl Tab*) 100 mg PO DAILY [facility] Metoprolol Tartrate (Lopressor Iv*) 5 mg IV Q6H PRN PRN Reason: HEART RATE/PULSE Last Admin: 11/29/16 01:33 Dose: 5 mg Ondansetron HCl (Zofran Inj*) 4 mg IV Q4H PRN PRN Reason: NAUSEA Polyethylene Glycol/Electrolytes (Miralax*) 17 gm PO DAILY [facility] Last Admin: 11/29/16 11:14 Dose: 17 gm Ramipril (Altace Cap*) 10 mg PO DAILY [facility] Last Admin: 11/29/16 11:15 Dose: 10 mg Rivaroxaban (Xarelto (*)) 20 mg PO DAILY [facility] Last Admin: 11/29/16 11:15 Dose: 20 mg Senna (Senokot Tab*) 1 tab PO BEDTIME PRN PRN Reason: CONSTIPATION Vital Signs: Temp Pulse Resp BP Pulse Ox 98.2 F 100 22 131/67 98 11/29/16 15:10 11/29/16 15:10 11/29/16 15:10 11/29/16 15:10 11/29/16 15:10 Oxygen Devices in Use Now: Nasal Cannula - 2Lnc Appearance: Well appearing elderly female who becomes dyspneic with conversation Respiratory: Symmetrical Chest Expansion and Respiratory Effort, - - exam is somewhat limited, but no adventitious lung sounds appreciated Cardiovascular: NL Sounds; No Murmurs; No JVD, - - tachycardic, irreg rhythm Abdominal: NL Sounds; No Tenderness; No Distention Extremities: - - LE wrapped in SANDI wraps Skin: No Rash or Ulcers Neurological: Alert and Oriented x 3 Result Diagrams: 11/29/16 05:19 11/29/16 05:19 Additional Lab and Data: . Diagnostic Imaging: CT chest 11/27 - atelectasis R lung base Echo - LVEF 55-60%, reduced RV fxn with mod pulm HTN Tele - afib rate 100-120 CTA chest 11/29 - No PE, Consolidation of RLL v atelectasis with sm B pleural effusions Assess/Plan/Problems-Billing Assessment: Ms. Weaver is a 86 yo female with a PMH of chronic atrial fibrillation, esophagitis, gastritis, anemia, angiodysplasia, and HTN who presented to the ED on 11/27/16 with SOB and incidental finding of UTI. - Patient Problems (1) Shortness of breath Comment: ?etiology Patient remains quite dyspneic CT today shows no PE Consolidation v atelectasis in R lung base Will treat for CAP with aggressive incentive spirometry RV dysfxn and pulm HTN is puzzling, no h/o smoking or chronic lung disease, ?HARLAN , unsure if this is contributing to her acute picture Continue supp O2 (2) Chronic atrial fibrillation Comment: With rapid ventricular response HR still 100-120, while resting. May be contributing to respiratory status and CHF. Give additional 25 mg today and increase to 100 mg Toprol XL tomorrow, remains normotensive Continue rivaroxaban. (3) Pulmonary hypertension Comment: Unsure of chronicity or etiology No h/o lung dz Perhaps untreated HARLAN or restrictive lung process d/t her kyphosis No PE on CTA (4) UTI (urinary tract infection) Comment: Urine culture growing E. coli Continue ceftriaxone. (5) Bilateral lower extremity edema Comment: Continue furosemide and LE compression Status and Disposition: Continue inpatient hospital stay, anticipate additional 2+ days of hospital stay
[2016-11-29] MEDS: Azithromycin IV(*) 500 MG in NS 0.9% 250 ML* 250 ML IVPB SCH (21:18)
[2016-11-30] MEDS: Ramipril CAP* 10 MG PO SCH (09:56)
[2016-11-30] MEDS: Polyethylene Glycol 3350* 17 GM PACKET PO SCH (09:56)
[2016-11-30] MEDS: Rivaroxaban TAB(*) 20 MG TAB PO SCH (09:57)
[2016-11-30] MEDS: Metoprolol Succinate XL TAB* 100 MG PO SCH (09:57)
[2016-11-30] MEDS: Furosemide TAB* 20 MG PO SCH (09:57)
[2016-11-30] MEDS: Diltiazem CD CAP* 120 MG PO SCH (13:58)
--- NOTE | 2016-11-30 15:55 | PN ---
Subjective Date of Service: 11/30/16 Interval History: Patient reports some improvement in dyspnea. She denies significant cough. Remains afebrile. She denies CP or palp. No n/v or abdominal pain. No new symptoms Objective Active Medications: Acetaminophen (Tylenol Tab*) 650 mg PO Q6H PRN PRN Reason: PAIN Diltiazem HCl (Cardizem Cd Cap*) 120 mg PO DAILY [facility] Last Admin: 11/30/16 13:58 Dose: 120 mg Docusate Sodium (Colace Cap*) 200 mg PO DAILY PRN PRN Reason: CONSTIPATION Furosemide (Lasix Tab*) 20 mg PO DAILY [facility] Last Admin: 11/30/16 09:57 Dose: 20 mg Ceftriaxone Sodium 1,000 mg/ (Sodium Chloride) 50 mls @ 200 mls/hr IVPB Q24H [facility] Last Admin: 11/29/16 17:18 Dose: 200 mls/hr Azithromycin 500 mg/ Sodium (Chloride) 250 mls @ 250 mls/hr IVPB Q24H [facility] Last Admin: 11/29/16 21:18 Dose: 250 mls/hr Magnesium Hydroxide (Milk Of SCHEDitfidel Liq*) 30 ml PO Q6H PRN PRN Reason: CONSTIPATION Metoprolol Succinate (Toprol Xl Tab*) 100 mg PO DAILY [facility] Last Admin: 11/30/16 09:57 Dose: 100 mg Metoprolol Tartrate (Lopressor Iv*) 5 mg IV Q6H PRN PRN Reason: HEART RATE/PULSE Last Admin: 11/29/16 01:33 Dose: 5 mg Ondansetron HCl (Zofran Inj*) 4 mg IV Q4H PRN PRN Reason: NAUSEA Polyethylene Glycol/Electrolytes (Miralax*) 17 gm PO DAILY [facility] Last Admin: 11/30/16 09:56 Dose: 17 gm Ramipril (Altace Cap*) 10 mg PO DAILY [facility] Last Admin: 11/30/16 09:56 Dose: 10 mg Rivaroxaban (Xarelto (*)) 20 mg PO DAILY [facility] Last Admin: 11/30/16 09:57 Dose: 20 mg Senna (Senokot Tab*) 1 tab PO BEDTIME PRN PRN Reason: CONSTIPATION Vital Signs: Temp Pulse Resp BP Pulse Ox 98 F 76 21 122/63 97 11/30/16 15:30 11/30/16 15:30 11/30/16 15:30 11/30/16 15:30 11/30/16 15:30 Oxygen Devices in Use Now: Nasal Cannula - 2Lnc Appearance: Elderly female with severe kyphosis in NAD Eyes: No Scleral Icterus Neck: NL Appearance and Movements; NL JVP Respiratory: Symmetrical Chest Expansion and Respiratory Effort, - - noted very poor inspiratory force and little air movement Cardiovascular: NL Sounds; No Murmurs; No JVD Extremities: - - LE covered in SANDI wraps Skin: No Rash or Ulcers Neurological: Alert and Oriented x 3 Result Diagrams: 11/29/16 05:19 11/29/16 05:19 Additional Lab and Data: . Diagnostic Imaging: CT chest 11/27 - atelectasis R lung base Echo - LVEF 55-60%, reduced RV fxn with mod pulm HTN Tele - afib rate ~100 CTA chest 11/29 - No PE, Consolidation of RLL v atelectasis with sm B pleural effusions Assess/Plan/Problems-Billing Assessment: Ms. Weaver is a 86 yo female with a PMH of chronic atrial fibrillation, esophagitis, gastritis, anemia, angiodysplasia, and HTN who presented to the ED on 11/27/16 with SOB and incidental finding of UTI. Repeat suggests presence of PNU. - Patient Problems (1) CAP (community acquired pneumonia) Comment: RLL consolidation noted on repeat CT with associated atelectasis Treating for CAP Still quite dyspneic and using 3L supp O2, but maintaining sats in high 90s, this can likely be titrated down Her kyphosis contributes to her poor inspiratory effort. Encourged her to continue to use the flutter valve and incentive spirometer (2) Chronic atrial fibrillation Comment: With rapid ventricular response HR still ~100, while resting. May be contributing to respiratory status and CHF. Increased metoprolol, will add diltiazem for additional rate control, still normotensive Continue rivaroxaban. (3) Pulmonary hypertension Comment: Unsure of chronicity or etiology No h/o lung dz Perhaps untreated HARLAN or restrictive lung process d/t her kyphosis No PE on CTA (4) UTI (urinary tract infection) Comment: Urine culture grew pansensitive E Coli Continue ceftriaxone. Recommend total of 5 days of treatment (5) Bilateral lower extremity edema Comment: Continue furosemide and LE compression Status and Disposition: Continue inpatient hospital stay, anticipate additional 2+ days of hospital stay
[2016-11-30] MEDS: cefTRIAXone VIAL(*) 1,000 MG in NS 0.9% 50 ML* 50 ML IVPB SCH (16:13)
[2016-11-30] MEDS: Azithromycin IV(*) 500 MG in NS 0.9% 250 ML* 250 ML IVPB SCH (21:15)
[2016-12-01 05:34] LABS: Hematocrit 35 % (35-47); Hemoglobin 11.4 g/dl (12.0-16.0); Mean Corpuscular HGB Conc 32 g/dl (31-36); Mean Corpuscular Hemoglobin 33 pg (27-31); Mean Corpuscular Volume 103 fL (80-97); Mean Platelet Volume 10 um3 (7.4-10.4); Red Blood Count 3.41 10^6/ul (4.0-5.4); Red Cell Distribution Width 14 % (10.5-15); White Blood Count 6.6 10^3/ul (3.5-10.8)
[2016-12-01 05:53] LABS: BUN/Creatinine Ratio 26.2 (8-20); C Reactive Protein 35.61 mg/L (< 5.00); Calcium 9.3 mg/dL (8.6-10.3); EGFR African American 111.4 (>60); EGFR Non-African American 86.6 (>60); Potassium 4.6 mmol/L (3.5-5.0)
[2016-12-01 09:43] LABS: Venous Bicarbonate HCO3 41.2 mmol/L (24-28)
[2016-12-01] MEDS: Furosemide TAB* 20 MG PO SCH (10:21)
[2016-12-01] MEDS: Metoprolol Succinate XL TAB* 100 MG PO SCH (10:21)
[2016-12-01] MEDS: Polyethylene Glycol 3350* 17 GM PACKET PO SCH (10:21)
[2016-12-01] MEDS: Diltiazem CD CAP* 120 MG PO SCH (10:21)
[2016-12-01] MEDS: Ramipril CAP* 10 MG PO SCH (10:21)
[2016-12-01] MEDS: Rivaroxaban TAB(*) 20 MG TAB PO SCH (10:22)
[2016-12-01] MEDS ORDERED: Magnesium CITRATE* 300 ML BTL PO ONE (12:32)
--- NOTE | 2016-12-01 15:59 | PN ---
Subjective Date of Service: 12/01/16 Interval History: Patient reports no significant changes in her respiratory symptoms. Still dyspneic. No significant cough. Objective Active Medications: Acetaminophen (Tylenol Tab*) 650 mg PO Q6H PRN PRN Reason: PAIN Diltiazem HCl (Cardizem Cd Cap*) 120 mg PO DAILY [facility] Last Admin: 12/01/16 10:21 Dose: 120 mg Docusate Sodium (Colace Cap*) 200 mg PO BID [facility] Furosemide (Lasix Tab*) 20 mg PO DAILY [facility] Last Admin: 12/01/16 10:21 Dose: 20 mg Ceftriaxone Sodium 1,000 mg/ (Sodium Chloride) 50 mls @ 200 mls/hr IVPB Q24H [facility] Last Admin: 11/30/16 16:13 Dose: 200 mls/hr Azithromycin 500 mg/ Sodium (Chloride) 250 mls @ 250 mls/hr IVPB Q24H [facility] Last Admin: 11/30/16 21:15 Dose: 250 mls/hr Magnesium Hydroxide (Milk Of Magnesia Liq*) 30 ml PO Q6H PRN PRN Reason: CONSTIPATION Last Admin: 12/01/16 13:14 Dose: 30 ml Metoprolol Succinate (Toprol Xl Tab*) 100 mg PO DAILY [facility] Last Admin: 12/01/16 10:21 Dose: 100 mg Metoprolol Tartrate (Lopressor Iv*) 5 mg IV Q6H PRN PRN Reason: HEART RATE/PULSE Last Admin: 11/29/16 01:33 Dose: 5 mg Ondansetron HCl (Zofran Inj*) 4 mg IV Q4H PRN PRN Reason: NAUSEA Polyethylene Glycol/Electrolytes (Miralax*) 17 gm PO DAILY [facility] Last Admin: 12/01/16 10:21 Dose: 17 gm Ramipril (Altace Cap*) 10 mg PO DAILY [facility] Last Admin: 12/01/16 10:21 Dose: 10 mg Rivaroxaban (Xarelto (*)) 20 mg PO DAILY [facility] Last Admin: 12/01/16 10:22 Dose: 20 mg Senna (Senokot Tab*) 1 tab PO BEDTIME [facility] Vital Signs: Temp Pulse Resp BP Pulse Ox 98.0 F 91 20 119/72 93 12/01/16 07:40 12/01/16 11:26 12/01/16 11:26 12/01/16 11:26 12/01/16 11:26 Oxygen Devices in Use Now: Nasal Cannula - 2Lnc Appearance: Well appearing elderly female in NAD eating lunch Respiratory: Symmetrical Chest Expansion and Respiratory Effort, - - still has very poor inspiratory effort. No adventitious lung sounds appreciated Cardiovascular: RRR Abdominal: NL Sounds; No Tenderness; No Distention Extremities: No Edema Skin: No Rash or Ulcers Neurological: Alert and Oriented x 3 Result Diagrams: 12/01/16 05:01 12/01/16 05:01 Additional Lab and Data: Laboratory Tests 12/01/16 09:33 VBG pH 7.30 L VBG pCO2 109 H VBG pO2 32 L VBG HCO3 41.2 H Diagnostic Imaging: CT chest 11/27 - atelectasis R lung base Echo - LVEF 55-60%, reduced RV fxn with mod pulm HTN Tele - afib rate ~100 CTA chest 11/29 - No PE, Consolidation of RLL v atelectasis with sm B pleural effusions Assess/Plan/Problems-Billing Assessment: Ms. Weaver is a 86 yo female with a PMH of chronic atrial fibrillation, esophagitis, gastritis, anemia, angiodysplasia, and HTN who presented to the ED on 11/27/16 with SOB and incidental finding of UTI. Repeat suggests presence of PNU. - Patient Problems (1) CAP (community acquired pneumonia) Comment: RLL consolidation noted on repeat CT with associated atelectasis Treating for CAP Still quite dyspneic Now with evidence of respiratory acidosis, titrating down O2 in hopes of increasing resp rate and driving down pCO2, will repeat VBG later this afternoon , if persistently acidotic, may require a short period of BiPAP Her kyphosis contributes to her poor inspiratory effort. Continuing to encourged her to continue to use the flutter valve and incentive spirometer Will repeat CXR tomorrow am (2) Chronic atrial fibrillation Comment: With rapid ventricular response HR still ~100, while resting. May be contributing to respiratory status and CHF. Increased metoprolol, will add diltiazem for additional rate control, still normotensive Continue rivaroxaban. (3) Pulmonary hypertension Comment: Unsure of chronicity or etiology No h/o lung dz Perhaps untreated HARLAN or restrictive lung process d/t her kyphosis No PE on CTA (4) UTI (urinary tract infection) Comment: Urine culture grew pansensitive E Coli Continue ceftriaxone. Recommend total of 5 days of treatment (5) Bilateral lower extremity edema Comment: Continue furosemide and LE compression Status and Disposition: Continue inpatient hospital stay, anticipate additional 2+ days of hospital stay
[2016-12-01 16:39] LABS: Venous Bicarbonate HCO3 37.8 mmol/L (24-28)
[2016-12-01] MEDS: cefTRIAXone VIAL(*) 1,000 MG in NS 0.9% 50 ML* 50 ML IVPB SCH (17:09)
[2016-12-01] MEDS: Azithromycin IV(*) 500 MG in NS 0.9% 250 ML* 250 ML IVPB SCH (19:59)
[2016-12-01] MEDS: Senna TAB PO SCH (20:01)
[2016-12-01] MEDS: Docusate CAP* 100 MG PO SCH (20:01)
[2016-12-02 04:00] LABS: Venous Bicarbonate HCO3 40.4 mmol/L (24-28)
--- NOTE | 2016-12-02 04:40 | PN ---
Progress Note - Progress Note Note: Nursing called reporting patient had not tolerated her CPAP earlier and so was placed on a nasal cannula at 2-3L later being found to be confused. VBG showed a pH of 7.2 with a pCO2 >125. While here on treatment for CAP, she has had no fevers and no leukocytosis. CTA chest 11/29/2016 was read as RLL consolidation or atelectasis. As such, will trial BiPap per NIPPV protocol and transfer to ICU.
[2016-12-02 04:47] LABS: PCO2 Arterial 116 mmHg (35-45)
--- NOTE | 2016-12-02 08:28 | PN ---
Subjective Date of Service: 12/02/16 Interval History: Patient was transferred to the ICU at ~0430 this am for acute resp failure and placed on BiPAP. She was unable to tolerate CPAP last night. She had a decline in mental status and ABG indicated severe respiratory acidosis. She has been able to tolerate BiPAP this am. Her is present. Patient is responsive to voice and touch. She offers no complaints. Objective Active Medications: Acetaminophen (Tylenol Tab*) 650 mg PO Q6H PRN PRN Reason: PAIN Diltiazem HCl (Cardizem Cd Cap*) 120 mg PO DAILY [facility] Last Admin: 12/01/16 10:21 Dose: 120 mg Docusate Sodium (Colace Cap*) 200 mg PO BID [facility] Last Admin: 12/01/16 20:01 Dose: 200 mg Furosemide (Lasix Iv*) 20 mg IV DAILY [facility] Ceftriaxone Sodium 1,000 mg/ (Sodium Chloride) 50 mls @ 200 mls/hr IVPB Q24H [facility] Last Admin: 12/01/16 17:09 Dose: 200 mls/hr Azithromycin 500 mg/ Sodium (Chloride) 250 mls @ 250 mls/hr IVPB Q24H [facility] Last Admin: 12/01/16 19:59 Dose: 250 mls/hr Magnesium Hydroxide (Milk Of Magnesia Liq*) 30 ml PO Q6H PRN PRN Reason: CONSTIPATION Last Admin: 12/01/16 13:14 Dose: 30 ml Metoprolol Succinate (Toprol Xl Tab*) 100 mg PO DAILY [facility] Last Admin: 12/01/16 10:21 Dose: 100 mg Metoprolol Tartrate (Lopressor Iv*) 5 mg IV Q6H PRN PRN Reason: HEART RATE/PULSE Last Admin: 11/29/16 01:33 Dose: 5 mg Ondansetron HCl (Zofran Inj*) 4 mg IV Q4H PRN PRN Reason: NAUSEA Polyethylene Glycol/Electrolytes (Miralax*) 17 gm PO DAILY [facility] Last Admin: 12/01/16 10:21 Dose: 17 gm Ramipril (Altace Cap*) 10 mg PO DAILY [facility] Last Admin: 12/01/16 10:21 Dose: 10 mg Rivaroxaban (Xarelto (*)) 20 mg PO DAILY [facility] Last Admin: 12/01/16 10:22 Dose: 20 mg Senna (Senokot Tab*) 1 tab PO BEDTIME [facility] Last Admin: 12/01/16 20:01 Dose: 1 tab Vital Signs: Temp Pulse Resp BP Pulse Ox 97.9 F 92 29 133/76 100 12/02/16 08:00 12/02/16 08:00 12/02/16 08:00 12/02/16 08:00 12/02/16 08:00 Oxygen Devices in Use Now: Nasal Cannula - 2Lnc Appearance: Elderly female with BiPAP in place. Accompanied by . Intermittently alert, appears comfortable Respiratory: Symmetrical Chest Expansion and Respiratory Effort, - - no adventitious lung sounds appreciated Extremities: - - LE compression stockings in place Result Diagrams: 12/01/16 05:01 12/01/16 05:01 Additional Lab and Data: Laboratory Tests 12/01/16 12/01/16 12/02/16 09:33 16:31 03:44 ABG pH ABG pCO2 ABG pO2 ABG HCO3 VBG pH 7.30 L 7.34 7.22 L VBG pCO2 109 H 86 H VBG pO2 32 L 45 41 VBG HCO3 41.2 H 37.8 H 40.4 H 12/02/16 04:30 ABG pH 7.27 L ABG pCO2 116 H* ABG pO2 74 L ABG HCO3 41.4 H* VBG pH VBG pCO2 VBG pO2 VBG HCO3 Diagnostic Imaging: CT chest 11/27 - atelectasis R lung base Echo - LVEF 55-60%, reduced RV fxn with mod pulm HTN Tele - afib rate ~100 CTA chest 11/29 - No PE, Consolidation of RLL v atelectasis with sm B pleural effusions Assess/Plan/Problems-Billing Assessment: Ms. Weaver is a 86 yo female with a PMH of chronic atrial fibrillation, esophagitis, gastritis, anemia, angiodysplasia, and HTN who presented to the ED on 11/27/16 with SOB and incidental finding of UTI. Repeat suggests presence of PNU. - Patient Problems (1) Acute respiratory failure Comment: Hypoxic and hypercarbic Now transferred to ICU on BiPAP Low tidal volumes Plan to repeat CXR, ABG, and diuress with IV Lasix this am (2) CAP (community acquired pneumonia) Comment: RLL consolidation noted on repeat CT with associated atelectasis Treating for CAP Now with acute resp failure Her kyphosis contributes to her poor inspiratory effort. (3) Chronic atrial fibrillation Comment: With rapid ventricular response, now rate controlled Increased metoprolol and added diltiazem for additional rate control, still normotensive Continue rivaroxaban. (4) Pulmonary hypertension Comment: Unsure of chronicity or etiology No h/o lung dz Perhaps untreated HARLAN or restrictive lung process d/t her kyphosis No PE on CTA (5) UTI (urinary tract infection) Comment: Urine culture grew pansensitive E Coli Continue ceftriaxone. Recommend total of 5 days of treatment (6) Bilateral lower extremity edema Comment: Continue furosemide and LE compression Status and Disposition: Now transferred to ICU, requires continued inpatient hospital care.
[2016-12-02] MEDS ORDERED: Furosemide IV* 10 MG/ML 10 ML VIAL (100 MG) IV ONE (08:38)
[2016-12-02 08:55] LABS: EPAP 6; FIO2 40; IPAP 16; Resp Rate 14
[2016-12-02] MEDS ORDERED: Furosemide IV* 10 MG/ML 10 ML VIAL (100 MG) ONE (08:56)
[2016-12-02] MEDS ORDERED: Furosemide IV* 10 MG/ML 10 ML VIAL (100 MG) IV SCH (09:00)
[2016-12-02 09:07] LABS: PCO2 Arterial 93 mmHg (35-45)
[2016-12-02] MEDS: Diltiazem CD CAP* 120 MG PO SCH ×2 (09:11→11:03)
[2016-12-02] MEDS: Docusate CAP* 100 MG PO SCH ×3 (09:11→21:24)
[2016-12-02] MEDS: Metoprolol Succinate XL TAB* 100 MG PO SCH ×2 (09:11→11:04)
[2016-12-02] MEDS: Ramipril CAP* 10 MG PO SCH ×2 (09:12→11:04)
[2016-12-02] MEDS: Rivaroxaban TAB(*) 20 MG TAB PO SCH ×2 (09:12→11:04)
--- NOTE | 2016-12-02 09:15 | RAD ---
INDICATION: Short of breath COMPARISON: Chest x-ray November 27, 2016 TECHNIQUE: An AP portable view obtained at 0030 hours is submitted. FINDINGS: Bones/Soft Tissues: There are no acute bony findings. Cardiomediastinal: The heart is normal in size. Lungs: There is chronic interstitial lung disease. There is progressive infiltrate in the right lung base with fine loss and elevation the right hemidiaphragm. Pleura: There is a small right-sided effusion. Other: None IMPRESSION: CHRONIC LUNG FINDINGS WITH PROGRESSIVE INFILTRATE RIGHT LUNG BASE AND SMALL RIGHT-SIDED EFFUSION
[2016-12-02 09:39] LABS: Hematocrit 35 % (35-47); Hemoglobin 11.3 g/dl (12.0-16.0); Mean Corpuscular HGB Conc 32 g/dl (31-36); Mean Corpuscular Hemoglobin 33 pg (27-31); Mean Corpuscular Volume 103 fL (80-97); Mean Platelet Volume 10 um3 (7.4-10.4); Red Blood Count 3.41 10^6/ul (4.0-5.4); Red Cell Distribution Width 14 % (10.5-15); White Blood Count 6.6 10^3/ul (3.5-10.8)
[2016-12-02 09:58] LABS: BUN/Creatinine Ratio 39.6 (8-20); Calcium 9.5 mg/dL (8.6-10.3); EGFR African American 158.1 (>60); EGFR Non-African American 122.9 (>60); Potassium 4.5 mmol/L (3.5-5.0)
--- NOTE | 2016-12-02 10:28 | PN ---
Hospitalist Progress Note HOSPITALIST ADDENDUM Case reviewed and d/w Nikhil MARIE. Patient evaluated at bedside. She is comfortable on BiPAP now, denies dyspnea. Agree with current therapy, but may need more invasive measures (thoracentesis, intubation with bronch). Critical care consult requested with Dr. Siddiqui. Patient wishes to be a Full code and is agreeable with a trial of aggressive measures. Will continue to monitor closely.
[2016-12-02] MEDS: Metoprolol Tartrate IV* 1 MG/ML 5 ML VIAL IV SCH ×3 (11:04→21:24)
[2016-12-02] MEDS: Polyethylene Glycol 3350* 17 GM PACKET PO SCH (11:04)
--- NOTE | 2016-12-02 13:29 | PN ---
Progress Note - Progress Note Note: Critical Care Medicine Asked to see the frail elderly female by Dr Gordon regarding her respiratory status. Patient transferred to ICU re respiratory distress and hypercapneic respiratory failure for which she has been treated with BiPAP. Patient had a CTA Chest revealing RLL consolidation and atelectasis with small pleural effusion. Whe patient seen just now, she is awake and alert. Regarding her respiratory status she acknowledges that this is the worst her breathing has been and regarding the subject of going on a a ventilator to receive life support she says she does not want this and states that she wants to be allowed to if it comes to that. She is on face mask oxygen. She is taking shallow "guppy" breaths using strap muscles. Have asked nurse to have BiPAP re-applied. She apparently received a dose of lasix earlier and has diuresed well per nurse. NKDA PMH A Fib, Hysterectomy, Varicose Veins Fam Hx CAD, Ovarian Ca Soc Hx neg tobacco, apparently has one drink a day, SBP 148 HR 95-110 irreg RR 25 SpO2 84-86 (FM) Skin no diaphoresis, no cyanosis Sclerae anicteric, pupils equal Oral mucosa pink Lungs with decreased air entry Rt lower, no wheezes Cor Irreg no rub no murmur Abd soft, nontender wesley Ext edematous WBC 6.6 Hgb 11.3 Plt 159 7.37/93/95 K 4.5 HCO3 46 BUN/Creat 19/.48 CXR RT lower one half of chest opacified IMP: Acute Hypercapneic and Hypoxemic Respiratory Failure with ongoing respiratory distress...patient saying currently she does not want to be on ventilator, does not want her BiPAP, and says she wants to be allowed to . Bedside nurse has witnessed this as well. Have notified Dr Gordon regarding this and her PA has spoken to patient and called family regarding this matter. She came to me requesting signature of ANY to reflect these issues on behalf of her service...done RLL consolidation/atelectasis Frailty with weakness Peripheral edema Compensatory metabolic alkalosis A Fib..acceptable rate all things considered at this time. PLAN/REC: Defer to Hospitalist service at this time regarding ongoing conversations with family and patient Would generally have recommended intubation of patient at time I saw her and in truth, even if intubated this time and eventually weaned and extubated, I do not forsee patient successfully breathing independent of the ventilator in the 6 months ahead. For now continue BiPAP or regular FM as tolerated/accepted Would recommend Palliative Care Consult
[2016-12-02] MEDS: cefTRIAXone VIAL(*) 1,000 MG in NS 0.9% 50 ML* 50 ML IVPB SCH (16:39)
--- NOTE | 2016-12-02 18:05 | PN ---
Hospitalist Progress Note Patient became more alert later in the day and asked for the BiPAP to be taken off and asked for no further intervention. Family arrived and discussed case in detail. Patient has decided she does NOT desire intubation, but would want cardiac resuscitation and is willing to trial BiPAP as tolerated. CXR shows worsening R sided effusion and infiltrate. Discussed utility of thoracentesis with play back operator, Dr Siddiqui, who has advised against at this time. And patient does not desire any invasive procedure. Will have her wear the BiPAP tonight. She received 60mg IV Lasix this evening with 2L output following. Will repeat ABG and CXR in am.
[2016-12-02] MEDS: Azithromycin IV(*) 500 MG in NS 0.9% 250 ML* 250 ML IVPB SCH (20:00)
[2016-12-02] MEDS: Senna TAB PO SCH (21:24)
[2016-12-03] MEDS: Metoprolol Tartrate IV* 1 MG/ML 5 ML VIAL IV SCH (03:20)
[2016-12-03 05:48] LABS: Hematocrit 36 % (35-47); Hemoglobin 11.8 g/dl (12.0-16.0); Mean Corpuscular HGB Conc 33 g/dl (31-36); Mean Corpuscular Hemoglobin 33 pg (27-31); Mean Corpuscular Volume 102 fL (80-97); Mean Platelet Volume 11 um3 (7.4-10.4); Red Blood Count 3.56 10^6/ul (4.0-5.4); Red Cell Distribution Width 14 % (10.5-15); White Blood Count 7.3 10^3/ul (3.5-10.8)
[2016-12-03 05:57] LABS: Blood Urea Nitrogen 21 mg/dL (6-24); Calcium 9.4 mg/dL (8.6-10.3); Chloride 88 mmol/L (101-111); EGFR African American 122.2 (>60); Glucose 107 mg/dL (70-100); Sodium 137 mmol/L (133-145)
[2016-12-03 06:17] LABS: CO2 Carbon Dioxide 43 mmol/L (22-32)
--- NOTE | 2016-12-03 08:02 | RAD ---
INDICATION: Right-sided effusion COMPARISON: December 02, 2016 TECHNIQUE: An AP portable view obtained at 0716 hours is submitted. FINDINGS: Bones/Soft Tissues: There are no acute bony findings. Cardiomediastinal: The cardiomediastinal silhouette is normal. The interstitium is prominent compatible with vascular congestion. Lungs: Small bibasilar infiltrates. There are chronic interstitial changes. Aeration right lung bases not improved Pleura: Small bilateral pleural effusions. The right-sided effusion appears slightly smaller. Other: Elevated right hemidiaphragm IMPRESSION: INTERSTITIAL CONGESTION. BASILAR INFILTRATES WITH SMALL BILATERAL PLEURAL EFFUSIONS. IMPROVED AERATION OF THE RIGHT LUNG BASE.
--- NOTE | 2016-12-03 08:19 | PN ---
Progress Note - Progress Note Note: [facility] Progress Note Patient on HF NC....likes this better Feels breathing is better Nurses report she was up all night in relation to dyspnea SBP 162 HR 110-115 irreg RR 34 shallow SpO2 88 (HF NC) Skin no diaphoresis, no cyanosis Sclerae anicteric, pupils equal Oral mucosa pink Back with prominent kyphosis Chest no soft tissue, skin loose over ribs Lungs with decreased air entry Rt lower chest, no wheezes Cor Irreg no rub no murmur Abd soft, nontender wesley Ext min edema, skin of legs now wrinkled, no muscle mass in arms WBC 7.3 Hgb 11.8 Plt 182 HCO3 43 BUN/Creat 21/0.6 CXR elevated Rt hemidiaphragm (can see dome of diaphragm) Performed POC US of chest ..minimal pleural fluid, very limited excursion of Rt hemidiaphragm IMP: Acute Hypercapneic and Hypoxemic Respiratory Failure with ongoing dyspnea ....RLL consolidation/atelectasis...appears resolved on CXR ....does have elevated Rt HD with very limited excursion....suspect this is chronic but have no old Xrays for comparison ....inconsequential pleural fluid ....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
[2016-12-03] MEDS ORDERED: Metoprolol Tartrate IV* 1 MG/ML 5 ML VIAL IV PRN (08:25)
--- NOTE | 2016-12-03 08:31 | PN ---
Subjective Date of Service: 12/03/16 Interval History: Patient did not tolerate BiPAP overnight, maintained on high flow. She reports improved feelings of dyspnea. Denies new complaints. Family is present. Objective Active Medications: Acetaminophen (Tylenol Tab*) 650 mg PO Q6H PRN PRN Reason: PAIN Diltiazem HCl (Cardizem Cd Cap*) 120 mg PO DAILY [facility] Last Admin: 12/02/16 11:03 Dose: Not Given Docusate Sodium (Colace Cap*) 200 mg PO BID [facility] Last Admin: 12/02/16 21:24 Dose: Not Given Furosemide (Lasix Iv*) 40 mg IV DAILY [facility] Ceftriaxone Sodium 1,000 mg/ (Sodium Chloride) 50 mls @ 200 mls/hr IVPB Q24H [facility] Last Admin: 12/02/16 16:39 Dose: 200 mls/hr Azithromycin 500 mg/ Sodium (Chloride) 250 mls @ 250 mls/hr IVPB Q24H [facility] Last Admin: 12/02/16 20:00 Dose: 250 mls/hr Magnesium Hydroxide (Milk Of [employer] Liq*) 30 ml PO Q6H PRN PRN Reason: CONSTIPATION Last Admin: 12/01/16 13:14 Dose: 30 ml Metoprolol Succinate (Toprol Xl Tab*) 100 mg PO DAILY [facility] Last Admin: 12/02/16 11:04 Dose: Not Given Metoprolol Tartrate (Lopressor Iv*) 5 mg IV Q6H PRN PRN Reason: HR > 120bpm Ondansetron HCl (Zofran Inj*) 4 mg IV Q4H PRN PRN Reason: NAUSEA Polyethylene Glycol/Electrolytes (Miralax*) 17 gm PO DAILY [facility] Last Admin: 12/02/16 11:04 Dose: Not Given Ramipril (Altace Cap*) 10 mg PO DAILY [facility] Last Admin: 12/02/16 11:04 Dose: Not Given Rivaroxaban (Xarelto (*)) 20 mg PO DAILY [facility] Last Admin: 12/02/16 11:04 Dose: Not Given Senna (Senokot Tab*) 1 tab PO BEDTIME [facility] Last Admin: 12/02/16 21:24 Dose: Not Given Vital Signs: Temp Pulse Resp BP Pulse Ox 99.0 F 100 33 147/99 94 12/03/16 06:00 12/03/16 05:00 12/03/16 06:00 12/03/16 06:00 12/03/16 05:00 Oxygen Devices in Use Now: Nasal Cannula - 2Lnc Appearance: Frail elderly female, appears improved, in NAD Respiratory: Symmetrical Chest Expansion and Respiratory Effort, - - improved air exchange, no adventitious lung sounds appreciated Cardiovascular: NL Sounds; No Murmurs; No JVD, - - irreg rate/rhythm Abdominal: NL Sounds; No Tenderness; No Distention Extremities: - - trace LE edema Skin: No Rash or Ulcers Neurological: Alert and Oriented x 3 Result Diagrams: 12/03/16 05:35 12/03/16 06:23 Additional Lab and Data: Laboratory Tests 12/01/16 12/01/16 12/02/16 09:33 16:31 03:44 ABG pH ABG pCO2 ABG pO2 ABG HCO3 VBG pH 7.30 L 7.34 7.22 L VBG pCO2 109 H 86 H VBG pO2 32 L 45 41 VBG HCO3 41.2 H 37.8 H 40.4 H 12/02/16 04:30 ABG pH 7.27 L ABG pCO2 116 H* ABG pO2 74 L ABG HCO3 41.4 H* VBG pH VBG pCO2 VBG pO2 VBG HCO3 Diagnostic Imaging: CT chest 11/27 - atelectasis R lung base Echo - LVEF 55-60%, reduced RV fxn with mod pulm HTN Tele - afib rate ~100 CTA chest 11/29 - No PE, Consolidation of RLL v atelectasis with sm B pleural effusions CXR - 12/02 - mod R pleural effusion and consolidation CXR 12/03 - improved effusion, elevated R hemidiaphragm Assess/Plan/Problems-Billing Assessment: Ms. Weaver is a 86 yo female with a PMH of chronic atrial fibrillation, esophagitis, gastritis, anemia, angiodysplasia, and HTN who presented to the ED on 11/27/16 with SOB and incidental finding of UTI. Repeat CT suggests presence of PNU now with associated effusion and acute respiratory failure. - Patient Problems (1) Acute respiratory failure Comment: Hypoxic and hypercarbic Mild improvement noted this am Patient has not tolerated BiPAP and desires limited interventions She does seem to be tolerating high flow well Repeat CXR shows improvement in R sided effusion Will continue to diuress (2) CAP (community acquired pneumonia) Comment: RLL consolidation noted on repeat CT with associated atelectasis Treating for CAP Now with acute resp failure Her kyphosis contributes to her poor inspiratory effort. (3) Chronic atrial fibrillation Comment: With rapid ventricular response, now rate controlled Increased metoprolol and added diltiazem for additional rate control, still normotensive Continue rivaroxaban. (4) Pulmonary hypertension Comment: Unsure of chronicity or etiology No h/o lung dz Perhaps untreated HARLAN or restrictive lung process d/t her kyphosis No PE on CTA (5) UTI (urinary tract infection) Comment: Urine culture grew pansensitive E Coli Continue ceftriaxone for both UTI and CAP (6) Bilateral lower extremity edema Comment: Improving Continue furosemide and LE compression (7) DNI (do not intubate) Comment: Advanced directives have been discussed in detail Family and patient have differing wishes They have agreed on CPR but DNI and trial of BiPAP Patient and family would benefit from Palliative Consult, will discuss further tomorrow Status and Disposition: Patient requires continued ICU care. Discharge plan is unknown at this time.
[2016-12-03] MEDS ORDERED: Furosemide IV* 10 MG/ML 10 ML VIAL (100 MG) IV SCH (09:00)
[2016-12-03] MEDS: Metoprolol Succinate XL TAB* 100 MG PO SCH (09:08)
[2016-12-03] MEDS: Rivaroxaban TAB(*) 20 MG TAB PO SCH (09:09)
[2016-12-03] MEDS: Diltiazem CD CAP* 120 MG PO SCH (09:10)
[2016-12-03] MEDS: Ramipril CAP* 10 MG PO SCH (09:11)
[2016-12-03] MEDS: Docusate CAP* 100 MG PO SCH ×2 (09:12→20:29)
[2016-12-03] MEDS: Furosemide IV* 10 MG/ML VIAL (40 MG) IV SCH (09:13)
[2016-12-03 10:48] LABS: Venous Bicarbonate HCO3 45.8 mmol/L (24-28)
[2016-12-03] MEDS: Polyethylene Glycol 3350* 17 GM PACKET PO SCH (15:34)
[2016-12-03] MEDS: Diltiazem TAB* 30 MG PO SCH ×2 (15:37→18:03)
[2016-12-03] MEDS: cefTRIAXone VIAL(*) 1,000 MG in NS 0.9% 50 ML* 50 ML IVPB SCH (17:26)
[2016-12-03] MEDS: Azithromycin IV(*) 500 MG in NS 0.9% 250 ML* 250 ML IVPB SCH (19:40)
[2016-12-03] MEDS: Senna TAB PO SCH (20:29)
[2016-12-04 05:36] LABS: Venous Bicarbonate HCO3 47.1 mmol/L (24-28)
[2016-12-04 05:53] LABS: BUN/Creatinine Ratio 33.9 (8-20); Calcium 9.4 mg/dL (8.6-10.3); EGFR African American 124.6 (>60); EGFR Non-African American 96.9 (>60); Potassium 3.6 mmol/L (3.5-5.0)
--- NOTE | 2016-12-04 08:23 | PN ---
Subjective Date of Service: 12/04/16 Interval History: Patient reports no changes. She is comfortable on vapotherm. Attempts to titrate down her FIO2 results in significant drop in her O2 sat to the mid 70s. She continues to deny significant cough. Remains afebrile. Objective Active Medications: Acetaminophen (Tylenol Tab*) 650 mg PO Q6H PRN PRN Reason: PAIN Diltiazem HCl (Cardizem Cd Cap*) 180 mg PO DAILY [facility] Docusate Sodium (Colace Cap*) 200 mg PO BID [facility] Last Admin: 12/03/16 20:29 Dose: Not Given Furosemide (Lasix Iv*) 40 mg IV DAILY [facility] Last Admin: 12/03/16 09:13 Dose: 40 mg Ceftriaxone Sodium 1,000 mg/ (Sodium Chloride) 50 mls @ 200 mls/hr IVPB Q24H [facility] Last Admin: 12/03/16 17:26 Dose: 200 mls/hr Azithromycin 500 mg/ Sodium (Chloride) 250 mls @ 250 mls/hr IVPB Q24H [facility] Last Admin: 12/03/16 19:40 Dose: 250 mls/hr Magnesium Hydroxide (Milk Of Magnesia Liq*) 30 ml PO Q6H PRN PRN Reason: CONSTIPATION Last Admin: 12/01/16 13:14 Dose: 30 ml Metoprolol Succinate (Toprol Xl Tab*) 100 mg PO DAILY [facility] Last Admin: 12/03/16 09:08 Dose: 100 mg Metoprolol Tartrate (Lopressor Iv*) 5 mg IV Q6H PRN PRN Reason: HR > 120bpm Ondansetron HCl (Zofran Inj*) 4 mg IV Q4H PRN PRN Reason: NAUSEA Polyethylene Glycol/Electrolytes (Miralax*) 17 gm PO DAILY [facility] Last Admin: 12/03/16 15:34 Dose: Not Given Ramipril (Altace Cap*) 10 mg PO DAILY [facility] Last Admin: 12/03/16 09:11 Dose: 10 mg Rivaroxaban (Xarelto (*)) 20 mg PO DAILY [facility] Last Admin: 12/03/16 09:09 Dose: 20 mg Senna (Senokot Tab*) 1 tab PO BEDTIME [facility] Last Admin: 12/03/16 20:29 Dose: Not Given Vital Signs: Temp Pulse Resp BP Pulse Ox 97.0 F 84 22 130/71 96 02/27/17 06:00 12/04/16 06:00 12/04/16 06:00 12/04/16 06:00 12/04/16 06:00 Oxygen Devices in Use Now: Nasal Cannula - High flow cannula in place Appearance: elderly female, slightly tachypneic in NAD Ears/Nose/Mouth/Throat: Mucous Membranes Moist Neck: NL Appearance and Movements; NL JVP Respiratory: Symmetrical Chest Expansion and Respiratory Effort, - - no adventitious lung sounds, poor inspiratory effort Cardiovascular: NL Sounds; No Murmurs; No JVD, - - irregular rhythm Extremities: No Edema Skin: No Rash or Ulcers Neurological: Alert and Oriented x 3 Result Diagrams: 12/03/16 05:35 12/04/16 05:25 Additional Lab and Data: Laboratory Tests 12/01/16 12/01/16 12/02/16 09:33 16:31 03:44 ABG pH ABG pCO2 ABG pO2 ABG HCO3 VBG pH 7.30 L 7.34 7.22 L VBG pCO2 109 H 86 H VBG pO2 32 L 45 41 VBG HCO3 41.2 H 37.8 H 40.4 H 12/02/16 04:30 ABG pH 7.27 L ABG pCO2 116 H* ABG pO2 74 L ABG HCO3 41.4 H* VBG pH VBG pCO2 VBG pO2 VBG HCO3 Laboratory Tests 12/03/16 12/04/16 10:37 05:25 VBG pH 7.39 7.38 VBG pCO2 98 H 102 H VBG pO2 40 34 L VBG HCO3 45.8 H 47.1 H Diagnostic Imaging: CT chest 11/27 - atelectasis R lung base Echo - LVEF 55-60%, reduced RV fxn with mod pulm HTN Tele - afib rate ~100 CTA chest 11/29 - No PE, Consolidation of RLL v atelectasis with sm B pleural effusions CXR - 12/02 - mod R pleural effusion and consolidation CXR 12/03 - improved effusion, elevated R hemidiaphragm CXR 12/04 - pend Assess/Plan/Problems-Billing Assessment: Ms. Weaver is a 86 yo female with a PMH of chronic atrial fibrillation, esophagitis, gastritis, anemia, angiodysplasia, and HTN who presented to the ED on 11/27/16 with SOB and incidental finding of UTI. Repeat CT suggests presence of PNU now with associated effusion and acute respiratory failure. - Patient Problems (1) Acute respiratory failure Comment: Hypoxic and hypercarbic Mild improvement noted yesterday, but no further improvement appreciated today She is unable to wean from high flow despite improvement in effusion VBG indicates further rise in pCO2, fully compensated metabolically Repeat CXR is pending this am She remains afebrile, I do not believe the difficulty with ventilation is due to an uncontrolled infectious process Limitations are more likely anatomic due to her severe kyphosis and subsequent restrictive process with very low lung volumes Patient has not tolerated BiPAP and desires limited interventions Plan to continue current interventions and discuss palliative measures with the family, which the patient is very willing to accept at this time (2) CAP (community acquired pneumonia) Comment: RLL consolidation noted on repeat CT with associated atelectasis Treating for CAP Now with acute resp failure Her kyphosis contributes to her poor inspiratory effort. (3) Chronic atrial fibrillation Comment: With rapid ventricular response, now rate controlled Increased metoprolol and added diltiazem for additional rate control, still normotensive Continue rivaroxaban. (4) Pulmonary hypertension Comment: Unsure of chronicity or etiology No h/o lung dz Perhaps untreated HARLAN or restrictive lung process d/t her kyphosis No PE on CTA (5) UTI (urinary tract infection) Comment: Urine culture grew pansensitive E Coli Continue ceftriaxone for both UTI and CAP (6) Bilateral lower extremity edema Comment: Improving Continue furosemide and LE compression (7) DNI (do not intubate) Comment: Advanced directives have been discussed in detail Family and patient have differing wishes They have agreed on CPR but DNI and trial of BiPAP Will discuss further with family today as she is not improving Status and Disposition: Patient requires continued ICU care for vapotherm. Discharge plan is unknown at this time, pending further discussion with family
[2016-12-04 08:28] LABS: C Reactive Protein 14.47 mg/L (< 5.00)
--- NOTE | 2016-12-04 09:25 | RAD ---
INDICATION: Infiltrates, follow-up. COMPARISON: Comparison is made with prior chest x-ray study from December 03, 2016. TECHNIQUE: A portable view of the chest was obtained. FINDINGS: The heart appears mildly enlarged and unchanged. The lungs are underinflated. There is mild prominence of the interstitial markings which are unchanged. There are small focal infiltrates both lung bases and a small right pleural effusion which appear unchanged. IMPRESSION: FINDINGS SUGGESTIVE OF CONGESTIVE HEART FAILURE WITH SUPERIMPOSED BIBASILAR INFILTRATES, UNCHANGED.
[2016-12-04] MEDS: Furosemide IV* 10 MG/ML VIAL (40 MG) IV SCH (09:54)
[2016-12-04] MEDS: Docusate CAP* 100 MG PO SCH ×2 (09:54→20:25)
[2016-12-04] MEDS: Polyethylene Glycol 3350* 17 GM PACKET PO SCH (09:54)
[2016-12-04] MEDS: Metoprolol Succinate XL TAB* 100 MG PO SCH (09:54)
[2016-12-04] MEDS: Diltiazem CD CAP* 180 MG PO SCH (09:54)
[2016-12-04] MEDS: Rivaroxaban TAB(*) 20 MG TAB PO SCH (09:55)
[2016-12-04] MEDS: Ramipril CAP* 10 MG PO SCH (09:55)
[2016-12-04] MEDS: Morphine INJ* 2 MG/ML 1 ML SYRINGE IV PRN ×2 (16:06→21:13)
[2016-12-04] MEDS: cefTRIAXone VIAL(*) 1,000 MG in NS 0.9% 50 ML* 50 ML IVPB SCH (16:49)
--- NOTE | 2016-12-04 17:09 | PN ---
Hospitalist Progress Note Able to review current care with patient's , Uriel, in the hospital and her daughter, Dora via phone at [phone]. CXR shows no appreciable change. Patient's family is starting to accept the need to consider palliative measures as she is not improving with our current level of support and patient does not wish for us to escalate interventions. Briefly discussed Hospice at home or SNF v comfort care in the hospital with patient's daughter. Dora will plan to discuss things with her other sister's out of state this evening as well. Requested palliative care consultation. Patient's daughter will be available tomorrow afternoon for a family meeting along with patient's , Uriel.
[2016-12-04] MEDS: Azithromycin IV(*) 500 MG in NS 0.9% 250 ML* 250 ML IVPB SCH (19:36)
[2016-12-04] MEDS: Senna TAB PO SCH (20:25)
--- NOTE | 2016-12-04 22:39 | CONS ---
PALLIATIVE CARE CONSULT REPORT: DATE OF CONSULT: 12/04/16 PRIMARY CARE PHYSICIAN: Danyell De La Garza MD REQUESTING PHYSICIAN: FRANK Mejia HOSPITAL COURSE: This is an 86-year-old female with a past medical history of atrial fibrillation and congestive heart failure, on Xarelto and Lasix, who presented to the emergency room with increasing shortness of breath. According to the patient, she has had increasing shortness of breath for several weeks and she had a fall the night prior to her admission. She was very nonspecific with her complaints on admission. On my encounter, the patient states that she has been very depressed at home. She is mostly homebound. She has been struggling and has not been doing well and she has been very tired and she states that she is ready to allow for natural . On admission, they felt that her shortness of breath was related to either consolidation or heart failure secondary to her atrial fibrillation. We started her on Lasix, antibiotics, and ordered an echocardiogram. She also had a CTA that showed right lower lobe consolidation or atelectasis with small pleural effusions bilaterally. She had a chest, abdomen, and pelvis CT that was relatively unremarkable. Her echocardiogram as well on admission showed ejection fraction 55% to 60%, moderate regurg, moderate pulmonary hypertension. The patient was diuresed and started on antibiotics on the morning of the . She was still not doing well. There was a call to the overnight hospitalist regarding tolerating her CPAP. She was placed on 2 to 3 L of nasal cannula, found to be confused, and was noted to be in hypercapnic respiratory failure. She was put on BiPAP and transferred to the ICU at that time. Her chest x-ray showed chronic lung findings with progressive infiltrate in the right lung base and small right-sided effusion. The sock boarder was consulted the following day regarding her hypoxic and hypercapnic respiratory failure where her ABG showed a pH of 7.27, PCO2 116, PO2 of 74. Her MOLST was updated to a DNI, but still a full CPR. The sock boarder felt that with her kyphosis and restrictive lung disease and her decompensation and frailty with weakness prior to admission that she would not do well intubated and tolerate a successful wean of extubation and with her tenuous respiratory status at this time, the patient appears appropriate for hospice eligibility. She is currently on the max Vapotherm settings and unable to be weaned at this time. The patient clearly indicates that she is ready to . She states she does not want to struggle any more. She is tired and she is ready to pass away. The , however, wants her daughters to get here because they do not want her to , they want her to keep fighting. I discussed that it is important to respect the patient' s wishes and the patient is willing to wait another day before stopping the Vapotherm. She is requesting to have some morphine to help with her work of breathing. She is also complaining of some left-sided chest pain. Otherwise, remaining review of systems is negative. PAST MEDICAL HISTORY: Atrial fibrillation, kyphosis, history of congestive heart failure, osteoarthritis. INPATIENT MEDICATIONS: 1. Tylenol 650 mg every 6 hours as needed. 2. Diltiazem CD 180 mg daily. 3. Colace 200 mg p.o. b.i.d. 4. Lasix 40 mg IV daily. 5. Magnesium hydroxide 30 mL p.o. q.6 hours as needed. 6. Metoprolol succinate 100 mg daily. 7. Metoprolol tartrate 5 mg IV q.6 hours as needed. 8. Zofran 4 mg every 4 hours as needed. 9. MiraLAX 17 g p.o. daily. 10. Ramipril 10 mg p.o. daily. 11. Xarelto 20 mg daily. 12. Ceftriaxone 1 g daily. 13. Senna 1 tab at bedtime. 14. Azithromycin 250 q.24. ALLERGIES: No known drug allergies. SOCIAL HISTORY: The patient was residing at home with her , Uriel, prior to her admission. She was ambulating with a walker and a cane. She was mostly homebound, unable to get out due to her medical conditions and her also with osteoarthritis. No history of alcohol use. Drinks less than 1 alcoholic drink per day. Her healthcare proxy as mentioned is her , Rogelio. Code status at this time is a CPR and DNI. She has 4 children, 2 daughters are planning to come within the next 48 hours. The patient has been for 62 years. REVIEW OF SYSTEMS: As mentioned in the HPI. FAMILY HISTORY: Sister with coronary artery disease. Mother with ovarian cancer. PHYSICAL EXAM: Vitals: Temp 99.1, pulse rate 89, respiratory rate 25, oxygen saturation 94% on 40 L of Vapotherm at 50% FiO2, blood pressure 109/61. General : Frail, elderly with [id number] respiratory distress. Her is sitting at the bedside. HEENT: Neck: Supple. No lymphadenopathy. Oropharynx : Mucous membranes are dry. Pupils equal and reactive. Anicteric. Head: Normocephalic. Cardiac: Irregularly irregular rate and rhythm. Soft, systolic murmur heard throughout. Respiratory: Poor aeration. Diminished breath sounds. No wheezing, rhonchi, or rales appreciated due to limited aeration. Abdomen: Soft, nontender, nondistended. Extremities: +1 pretibial edema. Neurologic: Alert, oriented x3. No focal neurologic deficits. Generalized diffuse weakness. DIAGNOSTIC STUDIES/LAB DATA: White count 7.3, hemoglobin 11.8, hematocrit 36, platelets 182. INR 3.39. Sodium 141, potassium 3.6, chloride 89, bicarb 51, BUN 20, creatinine 0.59. Chest x-ray from today, the , showed findings are suggestive of congestive heart failure with superimposed bibasilar infiltrates unchanged. ASSESSMENT AND PLAN: This is an 86-year-old female with past medical history of atrial fibrillation, congestive heart failure, who presents to the emergency room with shortness of breath, found to have pneumonia and component of congestive heart failure. She has since decompensated on the and hypercapnic hypoxic respiratory failure. She improved her mentation on the BiPAP and is now on max settings of Vapotherm and unable to be weaned due to hypoxia. The patient does not want any more aggressive treatments including the Vapotherm and would just want to be allowed to peacefully. However, she states her daughters do not want her to pass away and they want her to keep fighting. I talked with her and her about how this appears to be an irreversible prognosis and that despite aggressive measures, I do not think that she will have a meaningful recovery. I also spoke in terms of her CPR, that this as well would not be a meaningful recovery. The patient does not want to have CPR though she states that her daughters would have a fit if she put a DNR on her MOLST. We discussed that she needs to decide based on what she wants and she agreed to filling out the MOLST to be a DNR/DNI. We agreed to starting morphine as needed for air hunger and shortness of breath and to meet with her daughter tomorrow afternoon to discuss allowing her to have a natural and weaning her off the Vapotherm and to follow through with the patient's wishes. Her wants her to wait until the daughter from [place] arrives, but the patient seems very reluctant to wait any longer than she has to. We will readdress this again tomorrow afternoon. Thank you for this consultation. I will follow along with you and I will follow up with the daughter, the patient, and the tomorrow afternoon as well. TIME SPENT: Greater than 90 minutes was spent doing this consultation, more than half the time was spent in direct patient contact. CC: Danyell De La Garza MD* [id number]/[facility] #: [id number] DUANE
[2016-12-05] MEDS: Morphine INJ* 2 MG/ML 1 ML SYRINGE IV PRN (04:46)
[2016-12-05 05:37] LABS: BUN/Creatinine Ratio 40.4 (8-20); Calcium 9.3 mg/dL (8.6-10.3); EGFR African American 129.6 (>60); EGFR Non-African American 100.8 (>60); Potassium 3.8 mmol/L (3.5-5.0)
[2016-12-05] MEDS ORDERED: NS 0.9% 1000 ML* 1,000 ML IV SCH (06:30)
--- NOTE | 2016-12-05 08:54 | PN ---
Subjective Date of Service: 12/05/16 Interval History: Evaluate pt at the bedside, she appears dyspenic but denies sob and reports she feels comfortable. Pt reports she met with Dr. Gutiérrez yesterday and confirms she does not want aggressive measures. Denies cough or sputum production. no fevers or chills. Daughter and at bedside - 3 other daughters are traveling from out of town. Family History: Unchanged from Admission Social History: Unchanged from Admission Past Medical History: Unchanged from Admission Objective Active Medications: Acetaminophen (Tylenol Tab*) 650 mg PO Q6H PRN PRN Reason: PAIN Diltiazem HCl (Cardizem Cd Cap*) 180 mg PO DAILY [facility] Last Admin: 12/04/16 09:54 Dose: 180 mg Docusate Sodium (Colace Cap*) 200 mg PO BID [facility] Last Admin: 12/04/16 20:25 Dose: 200 mg Furosemide (Lasix Iv*) 40 mg IV DAILY [facility] Last Admin: 12/04/16 09:54 Dose: 40 mg Ceftriaxone Sodium 1,000 mg/ (Sodium Chloride) 50 mls @ 200 mls/hr IVPB Q24H [facility] Last Admin: 12/04/16 16:49 Dose: 200 mls/hr Azithromycin 500 mg/ Sodium (Chloride) 250 mls @ 250 mls/hr IVPB Q24H [facility] Last Admin: 12/04/16 19:36 Dose: 250 mls/hr Sodium Chloride (Ns 0.9% 1000 Ml*) 1,000 mls @ 85 mls/hr IV PER RATE [facility] Last Admin: 12/05/16 06:53 Dose: 85 mls/hr Magnesium Hydroxide (Milk Of Magnesia Liq*) 30 ml PO Q6H PRN PRN Reason: CONSTIPATION Last Admin: 12/01/16 13:14 Dose: 30 ml Metoprolol Succinate (Toprol Xl Tab*) 100 mg PO DAILY [facility] Last Admin: 12/04/16 09:54 Dose: 100 mg Metoprolol Tartrate (Lopressor Iv*) 5 mg IV Q6H PRN PRN Reason: HR > 120bpm Morphine Sulfate (Morphine Inj (Syringe)*) 2 mg IV Q4H PRN PRN Reason: SHORTNESS OF BREATH Last Admin: 12/05/16 04:46 Dose: 2 mg Ondansetron HCl (Zofran Inj*) 4 mg IV Q4H PRN PRN Reason: NAUSEA Polyethylene Glycol/Electrolytes (Miralax*) 17 gm PO DAILY [facility] Last Admin: 12/04/16 09:54 Dose: 17 gm Ramipril (Altace Cap*) 10 mg PO DAILY [facility] Last Admin: 12/04/16 09:55 Dose: 10 mg Rivaroxaban (Xarelto (*)) 20 mg PO DAILY [facility] Last Admin: 12/04/16 09:55 Dose: 20 mg Senna (Senokot Tab*) 1 tab PO BEDTIME [facility] Last Admin: 12/04/16 20:25 Dose: 1 tab Vital Signs 12/05/16 12/05/16 12/05/16 05:00 05:30 06:00 Temperature 97.8 F 97.9 F Pulse Rate 94 101 Respiratory 22 18 27 Rate Blood Pressure 120/73 113/67 (mmHg) O2 Sat by Pulse 93 91 Oximetry 12/05/16 12/05/16 12/05/16 06:30 07:00 07:30 Temperature 98.1 F 98.1 F 98.2 F Pulse Rate 91 91 84 Respiratory 24 27 31 Rate Blood Pressure 107/63 (mmHg) O2 Sat by Pulse 94 92 93 Oximetry 12/05/16 12/05/16 07:40 08:00 Temperature 98.2 F 98.1 F Pulse Rate 100 Respiratory 26 28 Rate Blood Pressure 106/60 (mmHg) O2 Sat by Pulse 93 Oximetry Oxygen Devices in Use Now: High Flow Nasal Cannula - 40/40 Appearance: elderly female layig in bed A+O x3 in NAD Eyes: No Scleral Icterus, PERRLA Ears/Nose/Mouth/Throat: NL Teeth, Lips, Gums, Mucous Membranes Moist Neck: NL Appearance and Movements; NL JVP Respiratory: Symmetrical Chest Expansion and Respiratory Effort, - - scattered coarse rhonchi b/l Cardiovascular: NL Sounds; No Murmurs; No JVD, No Edema, - - irregularly irregular Abdominal: NL Sounds; No Tenderness; No Distention Extremities: No Clubbing, Cyanosis Skin: No Rash or Ulcers Neurological: Alert and Oriented x 3, NL Muscle Strength and Tone Lines/Tubes/Other Access: Clean, Dry and Intact Peripheral IV Nutrition: Taking PO's Result Diagrams: 12/03/16 05:35 12/05/16 05:10 Additional Lab and Data: Laboratory Tests 12/01/16 12/01/16 12/02/16 09:33 16:31 03:44 ABG pH ABG pCO2 ABG pO2 ABG HCO3 VBG pH 7.30 L 7.34 7.22 L VBG pCO2 109 H 86 H VBG pO2 32 L 45 41 VBG HCO3 41.2 H 37.8 H 40.4 H 12/02/16 04:30 ABG pH 7.27 L ABG pCO2 116 H* ABG pO2 74 L ABG HCO3 41.4 H* VBG pH VBG pCO2 VBG pO2 VBG HCO3 Laboratory Tests 12/03/16 12/04/16 10:37 05:25 VBG pH 7.39 7.38 VBG pCO2 98 H 102 H VBG pO2 40 34 L VBG HCO3 45.8 H 47.1 H Diagnostic Imaging: CT chest 11/27 - atelectasis R lung base Echo - LVEF 55-60%, reduced RV fxn with mod pulm HTN Tele - afib rate ~100 CTA chest 11/29 - No PE, Consolidation of RLL v atelectasis with sm B pleural effusions CXR - 12/02 - mod R pleural effusion and consolidation CXR 12/03 - improved effusion, elevated R hemidiaphragm CXR 12/04 - pend Assess/Plan/Problems-Billing Assessment: Ms. Weaver is a 86 yo female with a PMH of chronic atrial fibrillation, esophagitis, gastritis, anemia, angiodysplasia, and HTN who presented to the ED on 11/27/16 with SOB and incidental finding of UTI. Repeat CT suggests presence of PNU now with associated effusion and acute respiratory failure. - Patient Problems (1) Acute respiratory failure Comment: Hypoxic and hypercarbic. Mild improvement but unable to wean from high flow VBG indicates further rise in pCO2, fully compensated metabolically CXR yesterday unchanged showing CHF with superimposed bibasilar infiltrates Patient has not tolerated BiPAP Palliative consult yesterday with Dr. Gutiérrez, plan for DNR/DNI, pt desires limited interventions. (2) CAP (community acquired pneumonia) Comment: RLL consolidation noted on repeat CT with associated atelectasis Treating for CAP Now with acute resp failure Her kyphosis contributes to her poor inspiratory effort. (3) Pulmonary hypertension Comment: Unsure of chronicity or etiology No h/o lung dz Perhaps untreated HARLAN or restrictive lung process d/t her kyphosis No PE on CTA (4) UTI (urinary tract infection) Comment: Urine culture grew pansensitive E Coli Continue ceftriaxone for both UTI and CAP (5) Bilateral lower extremity edema Comment: Improving Continue furosemide and LE compression (6) Chronic atrial fibrillation Comment: With rapid ventricular response, now rate controlled Continue increased metoprolol and added diltiazem for additional rate control, still normotensive Continue rivaroxaban. (7) DVT prophylaxis Comment: Xarelto (8) DNI (do not intubate) Comment: (9) DNR (do not resuscitate) Status and Disposition: Patient requires continued ICU care for vapotherm. Discharge plan is unknown at this time, plan for palliative approach, awaiting daughters to arrive from out of town. Palliative team following
[2016-12-05] MEDS: Metoprolol Succinate XL TAB* 100 MG PO SCH (09:07)
[2016-12-05] MEDS: Furosemide IV* 10 MG/ML VIAL (40 MG) IV SCH (09:07)
[2016-12-05] MEDS: Polyethylene Glycol 3350* 17 GM PACKET PO SCH (09:07)
[2016-12-05] MEDS: Diltiazem CD CAP* 180 MG PO SCH (09:07)
[2016-12-05] MEDS: Rivaroxaban TAB(*) 20 MG TAB PO SCH (09:08)
[2016-12-05] MEDS: Ramipril CAP* 10 MG PO SCH (09:08)
[2016-12-05] MEDS: Docusate CAP* 100 MG PO SCH ×2 (09:08→20:50)
[2016-12-05] MEDS ORDERED: Metoprolol Succinate XL TAB* 100 MG PO SCH (14:25)
[2016-12-05] MEDS ORDERED: NS 0.9% 500 ML BAG* 500 ML IV SCH (15:00)
[2016-12-05] MEDS: Senna TAB PO SCH (20:50)
--- NOTE | 2016-12-06 08:44 | PN ---
Subjective Date of Service: 12/06/16 Interval History: . Pt is feeling better today, less SOB. Denies fever or chills. No CP. No cough. Reports better appetite. No N/V/D. Discussed with pt, daughter and that pt is stable to transfer to floor. Will also check labs today as the pt has had some improvement, family agrees with plan. Family History: Unchanged from Admission Social History: Unchanged from Admission Past Medical History: Unchanged from Admission Objective Active Medications: Acetaminophen (Tylenol Tab*) 650 mg PO Q6H PRN PRN Reason: PAIN Diltiazem HCl (Cardizem Cd Cap*) 180 mg PO DAILY [facility] Last Admin: 12/05/16 09:07 Dose: 180 mg Docusate Sodium (Colace Cap*) 200 mg PO BID [facility] Last Admin: 12/05/16 20:50 Dose: 200 mg Magnesium Hydroxide (Milk Of Magnesia Liq*) 30 ml PO Q6H PRN PRN Reason: CONSTIPATION Last Admin: 12/01/16 13:14 Dose: 30 ml Metoprolol Succinate (Toprol Xl Tab*) 100 mg PO DAILY [facility] Metoprolol Tartrate (Lopressor Iv*) 5 mg IV Q6H PRN PRN Reason: HR > 120bpm Morphine Sulfate (Morphine Inj (Syringe)*) 2 mg IV Q4H PRN PRN Reason: SHORTNESS OF BREATH Last Admin: 12/05/16 04:46 Dose: 2 mg Ondansetron HCl (Zofran Inj*) 4 mg IV Q4H PRN PRN Reason: NAUSEA Polyethylene Glycol/Electrolytes (Miralax*) 17 gm PO DAILY [facility] Last Admin: 12/05/16 09:07 Dose: 17 gm Ramipril (Altace Cap*) 10 mg PO DAILY [facility] Last Admin: 12/05/16 09:08 Dose: 10 mg Rivaroxaban (Xarelto (*)) 20 mg PO DAILY [facility] Last Admin: 12/05/16 09:08 Dose: 20 mg Senna (Senokot Tab*) 1 tab PO BEDTIME [facility] Last Admin: 12/05/16 20:50 Dose: 1 tab Vital Signs 12/06/16 12/06/16 12/06/16 03:49 04:00 04:30 Temperature 97.2 F 97.3 F Pulse Rate 73 74 Respiratory 17 16 22 Rate Blood Pressure 86/56 (mmHg) O2 Sat by Pulse 100 99 Oximetry 12/06/16 12/06/16 12/06/16 05:00 05:30 06:00 Temperature 97.3 F 97.3 F 97.3 F Pulse Rate 76 77 89 Respiratory 24 17 32 Rate Blood Pressure 105/56 107/68 (mmHg) O2 Sat by Pulse 99 96 94 Oximetry 12/06/16 12/06/16 12/06/16 06:30 07:00 07:30 Temperature 97.3 F 97.5 F 97.7 F Pulse Rate 79 83 84 Respiratory 16 14 13 Rate Blood Pressure 92/65 (mmHg) O2 Sat by Pulse 97 98 99 Oximetry Oxygen Devices in Use Now: Nasal Cannula - 4L Appearance: elderly 86 yo female, frail, sitting up in bed eating in NAD. A+O x3 Eyes: No Scleral Icterus, PERRLA Ears/Nose/Mouth/Throat: NL Teeth, Lips, Gums Neck: NL Appearance and Movements; NL JVP Respiratory: Symmetrical Chest Expansion and Respiratory Effort, Clear to Auscultation Cardiovascular: NL Sounds; No Murmurs; No JVD, - - trace LE edema b/l, irregularly irregular HR Abdominal: NL Sounds; No Tenderness; No Distention Extremities: No Clubbing, Cyanosis Skin: No Rash or Ulcers, No Nodules or Sclerosis Neurological: Alert and Oriented x 3, NL Sensation, NL Muscle Strength and Tone Lines/Tubes/Other Access: Clean, Dry and Intact Peripheral IV Nutrition: Taking PO's Result Diagrams: 12/03/16 05:35 12/05/16 05:10 Additional Lab and Data: Laboratory Tests 12/01/16 12/01/16 12/02/16 09:33 16:31 03:44 ABG pH ABG pCO2 ABG pO2 ABG HCO3 VBG pH 7.30 L 7.34 7.22 L VBG pCO2 109 H 86 H VBG pO2 32 L 45 41 VBG HCO3 41.2 H 37.8 H 40.4 H 12/02/16 04:30 ABG pH 7.27 L ABG pCO2 116 H* ABG pO2 74 L ABG HCO3 41.4 H* VBG pH VBG pCO2 VBG pO2 VBG HCO3 Laboratory Tests 12/03/16 12/04/16 10:37 05:25 VBG pH 7.39 7.38 VBG pCO2 98 H 102 H VBG pO2 40 34 L VBG HCO3 45.8 H 47.1 H Diagnostic Imaging: CT chest 11/27 - atelectasis R lung base Echo - LVEF 55-60%, reduced RV fxn with mod pulm HTN Tele - afib rate ~80 CTA chest 11/29 - No PE, Consolidation of RLL v atelectasis with sm B pleural effusions CXR - 12/02 - mod R pleural effusion and consolidation CXR 12/03 - improved effusion, elevated R hemidiaphragm CXR 12/04 - unchanged from prior Assess/Plan/Problems-Billing Assessment: Ms. Weaver is a 86 yo female with a PMH of chronic atrial fibrillation, esophagitis, gastritis, anemia, angiodysplasia, and HTN who presented to the ED on 11/27/16 with SOB and incidental finding of UTI. Repeat CT suggests presence of PNU now with associated effusion and acute respiratory failure. - Patient Problems (1) Acute respiratory failure Comment: Hypoxic and hypercarbic with a combination of CHF. Much improvement over the past 24 hours weaned off vapotherm now on sultur 4L NC CXR 12/04 unchanged showing CHF with superimposed bibasilar infiltrates Patient has not tolerated BiPAP Palliative consult with Dr. Gutiérrez, plan for DNR/DNI, pt desires limited interventions. (2) CAP (community acquired pneumonia) Comment: RLL consolidation noted on repeat CT with associated atelectasis Treated for CAP - finished full course of Abx Her kyphosis contributes to her poor inspiratory effort. (3) Pulmonary hypertension Comment: Unsure of chronicity or etiology No h/o lung dz Perhaps untreated HARLAN or restrictive lung process d/t her kyphosis No PE on CTA (4) UTI (urinary tract infection) Comment: Urine culture grew pansensitive E Coli Finished abx treatment (5) Bilateral lower extremity edema Comment: Improving Continue LE compression (6) Chronic atrial fibrillation Comment: With rapid ventricular response, now rate controlled Decrease metoprolol to 50 mg BID, stop cardizem - pts blood pressure yesterday did not tolerate medications. Continue rivaroxaban. (7) DVT prophylaxis Comment: Xarelto (8) DNI (do not intubate) Comment: (9) DNR (do not resuscitate) Status and Disposition: Inpatient with acute respiratory failure. Transfer to . Palliative team following.
[2016-12-06] MEDS: Metoprolol Succinate XL TAB* 50 MG PO SCH ×2 (09:10→20:00)
[2016-12-06] MEDS: Docusate CAP* 100 MG PO SCH ×2 (09:19→20:00)
[2016-12-06] MEDS: Polyethylene Glycol 3350* 17 GM PACKET PO SCH (09:19)
[2016-12-06] MEDS: Rivaroxaban TAB(*) 20 MG TAB PO SCH (09:19)
--- NOTE | 2016-12-06 10:34 | PN ---
Progress Note - Progress Note Note: Palliative care follow up consult: Patient improved from respiratory standpoint. Successfully weaned to NC. Daughter, Dora at the bedside. Discussed that since she has improved with her respiratory status that she is not a candidate for hospice. Patient is in better spirits today. She is interested in rehab and hoping to make it to assisted living so she can have her dog, Shivani back. Discussed depression as a component to her mental health as she feels little support at home from her , difficulty sleeping and often feels alone. Daughter feels that the is supportive. Recommend starting low dose remeron at bedtime. Patient is a good candidate for path referral program - outpatient palliative care program.
[2016-12-06 12:42] LABS: Hematocrit 37 % (35-47); Hemoglobin 11.8 g/dl (12.0-16.0); Mean Corpuscular HGB Conc 32 g/dl (31-36); Mean Corpuscular Hemoglobin 33 pg (27-31); Mean Corpuscular Volume 103 fL (80-97); Mean Platelet Volume 11 um3 (7.4-10.4); Red Blood Count 3.59 10^6/ul (4.0-5.4); Red Cell Distribution Width 14 % (10.5-15); White Blood Count 6.4 10^3/ul (3.5-10.8)
[2016-12-06 12:53] LABS: BUN/Creatinine Ratio 39.7 (8-20); Calcium 9.4 mg/dL (8.6-10.3); EGFR African American 127.1 (>60); EGFR Non-African American 98.8 (>60); Potassium 3.8 mmol/L (3.5-5.0)
[2016-12-06] MEDS ORDERED: Albuterol/Ipratropium NEB.SOL* Albuterol 2.5 MG/Ipratropium 0.5 MG 3 ML INH PRN (14:10)
[2016-12-06] MEDS: Senna TAB PO SCH (20:01)
[2016-12-06] MEDS ORDERED: Mirtazapine TAB* 15 MG PO PRN (21:00)
[2016-12-07] MEDS: Docusate CAP* 100 MG PO SCH ×2 (09:21→20:04)
[2016-12-07] MEDS: Polyethylene Glycol 3350* 17 GM PACKET PO SCH (09:22)
[2016-12-07] MEDS: Metoprolol Succinate XL TAB* 50 MG PO SCH ×2 (09:22→20:03)
[2016-12-07] MEDS: Rivaroxaban TAB(*) 20 MG TAB PO SCH (09:23)
--- NOTE | 2016-12-07 13:54 | PN ---
Subjective Date of Service: 12/07/16 Interval History: pt reports "im still here". She states she is feeling better. Continues to have some SOB with ambulation but denies at rest (she is noted to be mildly tachypneic at rest). Denies cough. No fevers or chills". No N/V/D. Family meeting today - pt would like to go to subacute rehab and try to get home. Family History: Unchanged from Admission Social History: Unchanged from Admission Past Medical History: Unchanged from Admission Objective Active Medications: Acetaminophen (Tylenol Tab*) 650 mg PO Q6H PRN PRN Reason: PAIN Albuterol/Ipratropium (Duoneb Neb.Nelli*) 1 neb INH Q4H PRN PRN Reason: SOB/WHEEZING Docusate Sodium (Colace Cap*) 200 mg PO BID [facility] Last Admin: 12/07/16 09:21 Dose: Not Given Magnesium Hydroxide (Milk Of Magnesia Liq*) 30 ml PO Q6H PRN PRN Reason: CONSTIPATION Last Admin: 12/01/16 13:14 Dose: 30 ml Metoprolol Succinate (Toprol Xl Tab*) 50 mg PO BID [facility] Last Admin: 12/07/16 09:22 Dose: 50 mg Metoprolol Tartrate (Lopressor Iv*) 5 mg IV Q6H PRN PRN Reason: HR > 120bpm Mirtazapine (Remeron Tab*) 15 mg PO BEDTIME PRN PRN Reason: SLEEP Morphine Sulfate (Morphine Inj (Syringe)*) 2 mg IV Q4H PRN PRN Reason: SHORTNESS OF BREATH Last Admin: 12/05/16 04:46 Dose: 2 mg Ondansetron HCl (Zofran Inj*) 4 mg IV Q4H PRN PRN Reason: NAUSEA Polyethylene Glycol/Electrolytes (Miralax*) 17 gm PO DAILY [facility] Last Admin: 12/07/16 09:22 Dose: Not Given Rivaroxaban (Xarelto (*)) 20 mg PO DAILY [facility] Last Admin: 12/07/16 09:23 Dose: 20 mg Senna (Senokot Tab*) 1 tab PO BEDTIME [facility] Last Admin: 12/06/16 20:01 Dose: 1 tab Vital Signs 12/06/16 12/06/16 12/06/16 14:18 15:07 18:40 Temperature 97.4 F 98.1 F Pulse Rate 60 104 Respiratory 24 16 24 Rate Blood Pressure 116/58 120/66 (mmHg) O2 Sat by Pulse 99 95 Oximetry 12/06/16 12/06/16 12/06/16 19:11 20:00 22:23 Temperature 98.2 F 98.5 F Pulse Rate 119 94 Respiratory 16 Rate Blood Pressure 122/65 110/60 (mmHg) O2 Sat by Pulse 97 96 Oximetry 12/07/16 12/07/16 12/07/16 03:55 04:00 08:00 Temperature 98.0 F Pulse Rate 103 Respiratory 17 18 Rate Blood Pressure 124/59 (mmHg) O2 Sat by Pulse 91 93 Oximetry 12/07/16 12/07/16 12/07/16 08:14 09:24 09:58 Temperature 97.6 F Pulse Rate 104 98 Respiratory 13 20 Rate Blood Pressure 129/72 (mmHg) O2 Sat by Pulse 57 92 92 Oximetry Oxygen Devices in Use Now: Nasal Cannula - 3-4L Eyes: No Scleral Icterus, PERRLA Ears/Nose/Mouth/Throat: NL Teeth, Lips, Gums, Mucous Membranes Moist Respiratory: Symmetrical Chest Expansion and Respiratory Effort, Clear to Auscultation Cardiovascular: NL Sounds; No Murmurs; No JVD, RRR, No Edema Abdominal: NL Sounds; No Tenderness; No Distention Extremities: No Edema, No Clubbing, Cyanosis Skin: No Rash or Ulcers, No Nodules or Sclerosis Neurological: Alert and Oriented x 3, NL Sensation, - - two assist OOB Lines/Tubes/Other Access: Clean, Dry and Intact Peripheral IV Nutrition: Taking PO's Result Diagrams: 12/06/16 11:00 12/06/16 11:00 Additional Lab and Data: Laboratory Tests 12/01/16 12/01/16 12/02/16 09:33 16:31 03:44 ABG pH ABG pCO2 ABG pO2 ABG HCO3 VBG pH 7.30 L 7.34 7.22 L VBG pCO2 109 H 86 H VBG pO2 32 L 45 41 VBG HCO3 41.2 H 37.8 H 40.4 H 12/02/16 04:30 ABG pH 7.27 L ABG pCO2 116 H* ABG pO2 74 L ABG HCO3 41.4 H* VBG pH VBG pCO2 VBG pO2 VBG HCO3 Laboratory Tests 12/03/16 12/04/16 10:37 05:25 VBG pH 7.39 7.38 VBG pCO2 98 H 102 H VBG pO2 40 34 L VBG HCO3 45.8 H 47.1 H Diagnostic Imaging: CT chest 11/27 - atelectasis R lung base Echo - LVEF 55-60%, reduced RV fxn with mod pulm HTN Tele - afib rate ~80 CTA chest 11/29 - No PE, Consolidation of RLL v atelectasis with sm B pleural effusions CXR - 12/02 - mod R pleural effusion and consolidation CXR 12/03 - improved effusion, elevated R hemidiaphragm CXR 12/04 - unchanged from prior Assess/Plan/Problems-Billing Assessment: Ms. Weaver is a 86 yo female with a PMH of chronic atrial fibrillation, esophagitis, gastritis, anemia, angiodysplasia, and HTN who presented to the ED on 11/27/16 with SOB and incidental finding of UTI. Repeat CT suggests presence of PNU now with associated effusion and acute respiratory failure. - Patient Problems (1) Acute respiratory failure Comment: Hypoxic and hypercarbic with a combination of CHF. Much improvement over the past 48 hours weaned off vapotherm now on 4L NC CXR 12/04 unchanged showing CHF with superimposed bibasilar infiltrates Patient has not tolerated BiPAP Palliative consult with Dr. Gutiérrez, plan for DNR/DNI, pt desires limited interventions but now has had much improvement and wants subacute rehab to be able to go home. (2) CAP (community acquired pneumonia) Comment: RLL consolidation noted on repeat CT with associated atelectasis Treated for CAP - finished full course of Abx Her kyphosis contributes to her poor inspiratory effort. (3) Pulmonary hypertension Comment: Unsure of chronicity or etiology No h/o lung dz Perhaps untreated HARLAN or restrictive lung process d/t her kyphosis No PE on CTA (4) UTI (urinary tract infection) Comment: Urine culture grew pansensitive E Coli Finished abx treatment (5) Bilateral lower extremity edema Comment: Improving Continue LE compression (6) Chronic atrial fibrillation Comment: With rapid ventricular response, now rate controlled Decrease metoprolol to 50 mg BID, stop cardizem - pts blood pressure did not tolerate medications. Continue rivaroxaban. (7) DVT prophylaxis Comment: Xarelto (8) DNI (do not intubate) Comment: (9) DNR (do not resuscitate) Status and Disposition: Inpatient with acute respiratory failure. Transfer to . Plan for subacute rehab
--- NOTE | 2016-12-07 14:39 | PN ---
Progress Note - Progress Note Note: Palliative care follow up note - Met with Patient, two daughters and , Uriel. Discussed goals of care. Patient ultimately wants to be home with her dog. Discussed she is a two person assist and not really feasible at this time. Plan is to look at rehab and go from there. Patient is a candidate for hospice based on her severe restrictive lung disease.
[2016-12-07] MEDS: Senna TAB PO SCH (20:04)
[2016-12-08 06:16] LABS: Hematocrit 36 % (35-47); Hemoglobin 11.7 g/dl (12.0-16.0); Mean Corpuscular HGB Conc 32 g/dl (31-36); Mean Corpuscular Hemoglobin 33 pg (27-31); Mean Corpuscular Volume 101 fL (80-97); Mean Platelet Volume 11 um3 (7.4-10.4); Red Blood Count 3.57 10^6/ul (4.0-5.4); Red Cell Distribution Width 14 % (10.5-15)
[2016-12-08 06:36] LABS: BUN/Creatinine Ratio 48.8 (8-20); Calcium 9.6 mg/dL (8.6-10.3); EGFR African American 189.6 (>60); EGFR Non-African American 147.4 (>60); Potassium 4.3 mmol/L (3.5-5.0)
--- NOTE | 2016-12-08 09:25 | RAD ---
INDICATION: Hypoxia COMPARISON: Chest x-ray December 04, 2016; CTA chest November 29, 2016 TECHNIQUE: PA and lateral dual-energy views were obtained. FINDINGS: Bones/Soft Tissues: There are no acute bony findings. There is osteopenia with kyphosis and compression deformities of the mid upper thoracic spine Cardiomediastinal: The heart is normal in size. Lungs: There is mild interstitial congestion with bilateral pleural effusions right greater than left. There is minor improvement. There is bibasilar airspace disease, unchanged. Pleura: As above bilateral effusions. Other: Elevated right hemidiaphragm IMPRESSION: MILD VASCULAR CONGESTION WITH BILATERAL PLEURAL EFFUSIONS WITH MINOR IMPROVEMENT
[2016-12-08] MEDS: Metoprolol Succinate XL TAB* 50 MG PO SCH (09:26)
[2016-12-08] MEDS: Polyethylene Glycol 3350* 17 GM PACKET PO SCH (09:26)
[2016-12-08] MEDS: Docusate CAP* 100 MG PO SCH ×2 (09:27→22:15)
[2016-12-08] MEDS: Rivaroxaban TAB(*) 20 MG TAB PO SCH (09:33)
--- NOTE | 2016-12-08 16:47 | PN ---
Subjective Date of Service: 12/08/16 Interval History: pt reports she is "feeling good today". Reports she feels a little stronger. Was able to ambulate and get OOB with less help today with PT. Denies SOB or CP. Reports occasional cough. No sputum production. Denies N/V/D. Reports appetite is improving Family History: Unchanged from Admission Social History: Unchanged from Admission Past Medical History: Unchanged from Admission Objective Active Medications: Acetaminophen (Tylenol Tab*) 650 mg PO Q6H PRN PRN Reason: PAIN Albuterol/Ipratropium (Duoneb Neb.Nelli*) 1 neb INH Q4H PRN PRN Reason: SOB/WHEEZING Docusate Sodium (Colace Cap*) 200 mg PO BID [facility] Last Admin: 12/08/16 09:27 Dose: 200 mg Magnesium Hydroxide (Milk Of Magnesia Liq*) 30 ml PO Q6H PRN PRN Reason: CONSTIPATION Last Admin: 12/01/16 13:14 Dose: 30 ml Metoprolol Succinate (Toprol Xl Tab*) 50 mg PO BID [facility] Last Admin: 12/08/16 09:26 Dose: 50 mg Metoprolol Tartrate (Lopressor Iv*) 5 mg IV Q6H PRN PRN Reason: HR > 120bpm Mirtazapine (Remeron Tab*) 15 mg PO BEDTIME PRN PRN Reason: SLEEP Morphine Sulfate (Morphine Inj (Syringe)*) 2 mg IV Q4H PRN PRN Reason: SHORTNESS OF BREATH Last Admin: 12/05/16 04:46 Dose: 2 mg Ondansetron HCl (Zofran Inj*) 4 mg IV Q4H PRN PRN Reason: NAUSEA Polyethylene Glycol/Electrolytes (Miralax*) 17 gm PO DAILY [facility] Last Admin: 12/08/16 09:26 Dose: 17 gm Rivaroxaban (Xarelto (*)) 20 mg PO DAILY [facility] Last Admin: 12/08/16 09:33 Dose: 20 mg Senna (Senokot Tab*) 1 tab PO BEDTIME [facility] Last Admin: 12/07/16 20:04 Dose: 1 tab Vital Signs 12/07/16 12/07/16 12/07/16 19:26 20:00 23:06 Temperature 96.8 F Pulse Rate 102 99 106 Respiratory 20 20 20 Rate Blood Pressure 132/71 131/79 (mmHg) O2 Sat by Pulse 90 106 99 Oximetry 12/08/16 12/08/16 12/08/16 07:49 08:00 10:16 Temperature 97.6 F Pulse Rate 98 99 Respiratory 14 20 20 Rate Blood Pressure 125/69 (mmHg) O2 Sat by Pulse 97 97 Oximetry Oxygen Devices in Use Now: Nasal Cannula - 3L Appearance: elderly female sitting up in the cahir watching TV in NAD. A+O x3 Eyes: No Scleral Icterus, PERRLA Ears/Nose/Mouth/Throat: NL Teeth, Lips, Gums, Mucous Membranes Moist Neck: NL Appearance and Movements; NL JVP Respiratory: Symmetrical Chest Expansion and Respiratory Effort, - - mild scatter rhonchi, good aeration throughout, no wheezing noted Cardiovascular: No Edema, - - irregulary irregular Abdominal: NL Sounds; No Tenderness; No Distention Lymphatic: No Cervical Adenopathy Extremities: No Edema, No Clubbing, Cyanosis Skin: No Rash or Ulcers, No Nodules or Sclerosis Neurological: Alert and Oriented x 3, NL Sensation, NL Gait, NL Muscle Strength and Tone Lines/Tubes/Other Access: Clean, Dry and Intact Peripheral IV Nutrition: Taking PO's Result Diagrams: 12/08/16 05:30 12/08/16 05:30 Additional Lab and Data: Laboratory Tests 12/01/16 12/01/16 12/02/16 09:33 16:31 03:44 ABG pH ABG pCO2 ABG pO2 ABG HCO3 VBG pH 7.30 L 7.34 7.22 L VBG pCO2 109 H 86 H VBG pO2 32 L 45 41 VBG HCO3 41.2 H 37.8 H 40.4 H 12/02/16 04:30 ABG pH 7.27 L ABG pCO2 116 H* ABG pO2 74 L ABG HCO3 41.4 H* VBG pH VBG pCO2 VBG pO2 VBG HCO3 Laboratory Tests 12/03/16 12/04/16 10:37 05:25 VBG pH 7.39 7.38 VBG pCO2 98 H 102 H VBG pO2 40 34 L VBG HCO3 45.8 H 47.1 H Diagnostic Imaging: CT chest 11/27 - atelectasis R lung base Echo - LVEF 55-60%, reduced RV fxn with mod pulm HTN Tele - afib rate ~80 CTA chest 11/29 - No PE, Consolidation of RLL v atelectasis with sm B pleural effusions CXR - 12/02 - mod R pleural effusion and consolidation CXR 12/03 - improved effusion, elevated R hemidiaphragm CXR 12/04 - unchanged from prior Assess/Plan/Problems-Billing Assessment: Ms. Weaver is a 86 yo female with a PMH of chronic atrial fibrillation, esophagitis, gastritis, anemia, angiodysplasia, and HTN who presented to the ED on 11/27/16 with SOB and incidental finding of UTI. Repeat CT suggests presence of PNA with associated effusion and acute respiratory failure. - Patient Problems (1) Acute respiratory failure Comment: Hypoxic and hypercarbic with a combination of CHF - now resolved Much improvement now weaned off vapotherm now on 3-4L NC CXR 12/04 unchanged showing CHF with superimposed bibasilar infiltrates Patient has not tolerated BiPAP Palliative consult with Dr. Gutiérrez, plan for DNR/DNI, pt desires limited interventions but now has had much improvement and wants subacute rehab to be able to go home. (2) CAP (community acquired pneumonia) Comment: RLL consolidation noted on repeat CT with associated atelectasis Treated for CAP - finished full course of Abx Her kyphosis contributes to her poor inspiratory effort. (3) Pulmonary hypertension Comment: Unsure of chronicity or etiology No h/o lung dz Perhaps untreated HARLAN or restrictive lung process d/t her kyphosis No PE on CTA (4) UTI (urinary tract infection) Comment: Urine culture grew pansensitive E Coli Finished abx treatment (5) Bilateral lower extremity edema Comment: Improving Continue LE compression (6) Chronic atrial fibrillation Comment: With rapid ventricular response, now rate controlled Switch to Metoprolol tartrate 100 mg BID, stop cardizem - pts blood pressure did not tolerate medications. Continue rivaroxaban. (7) DVT prophylaxis Comment: Xarelto (8) DNI (do not intubate) Comment: (9) DNR (do not resuscitate) Status and Disposition: Inpatient with acute respiratory failure. Plan for subacute rehab
[2016-12-08] MEDS: Metoprolol Tartrate TAB* 100 MG TAB PO SCH (22:15)
[2016-12-08] MEDS: Senna TAB PO SCH (22:15)
[2016-12-09 06:32] LABS: Hematocrit 35 % (35-47); Hemoglobin 11.4 g/dl (12.0-16.0); Mean Corpuscular HGB Conc 33 g/dl (31-36); Mean Corpuscular Hemoglobin 33 pg (27-31); Mean Corpuscular Volume 101 fL (80-97); Mean Platelet Volume 11 um3 (7.4-10.4); Red Blood Count 3.47 10^6/ul (4.0-5.4); Red Cell Distribution Width 14 % (10.5-15); White Blood Count 7.3 10^3/ul (3.5-10.8)
[2016-12-09 06:47] LABS: BUN/Creatinine Ratio 39.2 (8-20); Calcium 9.4 mg/dL (8.6-10.3); EGFR African American 147.4 (>60); EGFR Non-African American 114.6 (>60); Potassium 4.9 mmol/L (3.5-5.0)
[2016-12-09] MEDS: Metoprolol Tartrate TAB* 100 MG TAB PO SCH ×2 (08:37→22:07)
[2016-12-09] MEDS: Docusate CAP* 100 MG PO SCH ×2 (08:37→22:06)
[2016-12-09] MEDS: Polyethylene Glycol 3350* 17 GM PACKET PO SCH (08:37)
[2016-12-09] MEDS: Rivaroxaban TAB(*) 20 MG TAB PO SCH (08:39)
--- NOTE | 2016-12-09 10:19 | PN ---
Subjective Date of Service: 12/09/16 Interval History: Patient seen and examined at bedside. She does not offer or endorse any complaint but seems uncomfortable. However, she denies CP, SOB, abd pain, n/v. Nursing reports patient recently back to bed. She reports that she is "feeling better" than before. No other acute concerns. Family History: Unchanged from Admission Social History: Unchanged from Admission Past Medical History: Unchanged from Admission Objective Active Medications: Acetaminophen (Tylenol Tab*) 650 mg PO Q6H PRN PRN Reason: PAIN Albuterol/Ipratropium (Duoneb Neb.Nelli*) 1 neb INH Q4H PRN PRN Reason: SOB/WHEEZING Docusate Sodium (Colace Cap*) 200 mg PO BID [facility] Last Admin: 12/09/16 08:37 Dose: 200 mg Magnesium Hydroxide (Milk Of Magnesia Liq*) 30 ml PO Q6H PRN PRN Reason: CONSTIPATION Last Admin: 12/01/16 13:14 Dose: 30 ml Metoprolol Tartrate (Lopressor Tab*) 100 mg PO BID [facility] Last Admin: 12/09/16 08:37 Dose: 100 mg Mirtazapine (Remeron Tab*) 15 mg PO BEDTIME PRN PRN Reason: SLEEP Morphine Sulfate (Morphine Inj (Syringe)*) 2 mg IV Q4H PRN PRN Reason: SHORTNESS OF BREATH Last Admin: 12/05/16 04:46 Dose: 2 mg Ondansetron HCl (Zofran Inj*) 4 mg IV Q4H PRN PRN Reason: NAUSEA Polyethylene Glycol/Electrolytes (Miralax*) 17 gm PO DAILY [facility] Last Admin: 12/09/16 08:37 Dose: 17 gm Rivaroxaban (Xarelto (*)) 20 mg PO DAILY [facility] Last Admin: 12/09/16 08:39 Dose: 20 mg Senna (Senokot Tab*) 1 tab PO BEDTIME [facility] Last Admin: 12/08/16 22:15 Dose: 1 tab Vital Signs 12/08/16 12/08/16 12/08/16 15:57 20:00 22:36 Temperature 97.4 F 98.3 F Pulse Rate 103 92 106 Respiratory 19 16 24 Rate Blood Pressure 152/85 124/68 (mmHg) O2 Sat by Pulse 97 93 94 Oximetry 12/08/16 12/09/1617 23:25 07:40 08:00 Temperature 97.5 F 98.3 F Pulse Rate 92 96 Respiratory 16 20 20 Rate Blood Pressure 128/80 125/78 (mmHg) O2 Sat by Pulse 93 99 Oximetry Oxygen Devices in Use Now: Nasal Cannula - 3L Appearance: Elderly female, sitting up in bed, watching TV, in NAD Eyes: PERRLA Ears/Nose/Mouth/Throat: Clear Oropharnyx, Mucous Membranes Moist Neck: NL Appearance and Movements; NL JVP Respiratory: Symmetrical Chest Expansion and Respiratory Effort, - - scattered rhonchi Cardiovascular: - - S1, S2, irregularly irregular Abdominal: NL Sounds; No Tenderness; No Distention Extremities: - - BLE edema Skin: No Rash or Ulcers Neurological: Alert and Oriented x 3 - with some mild confusion, reorients easily Lines/Tubes/Other Access: Clean, Dry and Intact Peripheral IV Nutrition: Taking PO's Result Diagrams: 12/09/16 06:17 12/09/16 06:17 Additional Lab and Data: Laboratory Tests 12/01/16 12/01/16 12/02/16 09:33 16:31 03:44 ABG pH ABG pCO2 ABG pO2 ABG HCO3 VBG pH 7.30 L 7.34 7.22 L VBG pCO2 109 H 86 H VBG pO2 32 L 45 41 VBG HCO3 41.2 H 37.8 H 40.4 H 12/02/16 04:30 ABG pH 7.27 L ABG pCO2 116 H* ABG pO2 74 L ABG HCO3 41.4 H* VBG pH VBG pCO2 VBG pO2 VBG HCO3 Laboratory Tests 12/03/16 12/04/16 10:37 05:25 VBG pH 7.39 7.38 VBG pCO2 98 H 102 H VBG pO2 40 34 L VBG HCO3 45.8 H 47.1 H Diagnostic Imaging: CT chest 11/27 - atelectasis R lung base Echo - LVEF 55-60%, reduced RV fxn with mod pulm HTN Tele - afib rate ~80 CTA chest 11/29 - No PE, Consolidation of RLL v atelectasis with sm B pleural effusions CXR - 12/02 - mod R pleural effusion and consolidation CXR 12/03 - improved effusion, elevated R hemidiaphragm CXR 12/04 - unchanged from prior Assess/Plan/Problems-Billing Assessment: Ms. Weaver is a 86 yo female with a PMH of chronic atrial fibrillation, esophagitis, gastritis, anemia, angiodysplasia, and HTN who presented to the ED on 11/27/16 with SOB and incidental finding of UTI. Repeat CT suggests presence of PNA with associated effusion and acute respiratory failure. - Patient Problems (1) Acute respiratory failure Code(s): J96.00 - ACUTE RESPIRATORY FAILURE, UNSP W HYPOXIA OR HYPERCAPNIA Comment: Hypoxic and hypercarbic with a combination of CHF - now resolved. Much improvement, now weaned off vapotherm, now on 3-4L NC. CXR 12/04 unchanged, showing CHF with superimposed bibasilar infiltrates Patient has not tolerated BiPAP. Palliative consult with Dr. Gutiérrez, plan for DNR/DNI. Pt desires limited interventions but now has had much improvement. She wants subacute rehab to be able to go home. (2) CAP (community acquired pneumonia) Code(s): J18.9 - PNEUMONIA, UNSPECIFIED ORGANISM Comment: RLL consolidation noted on repeat CT with associated atelectasis. Treated for CAP - finished full course of abx. Her kyphosis contributes to her poor inspiratory effort. (3) Pulmonary hypertension Code(s): I27.2 - OTHER SECONDARY PULMONARY HYPERTENSION Comment: Unsure of chronicity or etiology. No h/o lung dz. Perhaps untreated HARLAN or restrictive lung process d/t her kyphosis. No PE on CTA. (4) UTI (urinary tract infection) Comment: Urine culture grew pansensitive E Coli. Finished abx treatment. (5) Bilateral lower extremity edema Code(s): R60.0 - LOCALIZED EDEMA Comment: Improving, continue LE compression. (6) Chronic atrial fibrillation Code(s): I48.2 - CHRONIC ATRIAL FIBRILLATION Comment: With rapid ventricular response, now rate controlled. Switch to metoprolol tartrate 100 mg BID. Diltiazem discontinued, as patient's BP did not tolerate medication. Continue rivaroxaban. (7) DVT prophylaxis Code(s): UYB8012 - Comment: Xarelto (8) DNI (do not intubate) Code(s): Z78.9 - OTHER SPECIFIED HEALTH STATUS Comment: (9) DNR (do not resuscitate) Status and Disposition: Inpatient with acute respiratory failure. Plan for subacute rehab on Sunday.
[2016-12-09] MEDS ORDERED: Furosemide TAB* 40 MG PO ONE (14:20)
--- NOTE | 2016-12-09 21:36 | RAD ---
INDICATION: Stroke and xerelto. COMPARISON: There are no prior studies available for comparison. TECHNIQUE: Contiguous axial sections of the brain were obtained from the skull base to the vertex without contrast. FINDINGS: The ventricles, cisterns and sulci are enlarged consistent with diffuse atrophy. There are confluent areas of decreased attenuation present in the subcortical and periventricular white matter most consistent with moderate to severe chronic small vessel ischemic changes. There is also a small focal area of near fluid density present peripherally in the right cerebellar hemisphere suggestive of an old infarct. No other focal abnormalities or mass effect is seen. There is no evidence for hemorrhage. No significant focal osseous abnormality is seen. The visualized portion of the paranasal sinuses and mastoid air cells appear clear. The results of this exam were called to referring clinician at 2124 hours. IMPRESSION: 1. NO EVIDENCE FOR GROSS ACUTE INFARCT, MASS EFFECT OR HEMORRHAGE. 2. ATROPHY AND FINDINGS CONSISTENT WITH MODERATE TO SEVERE CHRONIC SMALL VESSEL ISCHEMIC CHANGES. 3. OLD RIGHT CEREBELLAR INFARCT.
[2016-12-09 21:41] LABS: FIO2 29
--- NOTE | 2016-12-09 21:43 | PN ---
Progress Note - Progress Note Note: Cross-cover note Called to see patient with CAT-team, she was following command, ambulating earlier in evening. Nursing noted unresponsive, staring. She is anticoagulated with Xarelto for a-fib. Has epistaxis R nostril for some hours. Vitals stable, HR 108, O2 sat normal, FSBG 148. Eyes open, LT eye deviated laterally mildly, not tracking Not following commands. Both arms, both legs flaccid Concern re stroke/hemorrhage. CT brain ordered, code keller. No bleeding seen. Discussed case with neurologist recreation leader Rahul. Due to bilateral symptoms, normal CT, doubt stroke. Patient moved to ICU, will have ABG, troponins, CBC, lytes. Suspect hypercapneic respiratory failure.
[2016-12-09 21:51] LABS: PCO2 Arterial 104 mmHg (35-45)
[2016-12-09 22:04] LABS: Hematocrit 37 % (35-47); Hemoglobin 11.9 g/dl (12.0-16.0); Mean Corpuscular HGB Conc 32 g/dl (31-36); Mean Corpuscular Hemoglobin 33 pg (27-31); Mean Corpuscular Volume 102 fL (80-97); Mean Platelet Volume 11 um3 (7.4-10.4); Red Blood Count 3.66 10^6/ul (4.0-5.4); Red Cell Distribution Width 14 % (10.5-15); White Blood Count 8.2 10^3/ul (3.5-10.8)
[2016-12-09 22:07] LABS: BUN/Creatinine Ratio 33.9 (8-20); Calcium 9.3 mg/dL (8.6-10.3); EGFR African American 117.7 (>60); EGFR Non-African American 91.5 (>60); Globulin 3.3 g/dL (2-4); Potassium 4.1 mmol/L (3.5-5.0); Total Bilirubin 0.5 mg/dL (0.2-1.0); Total Protein 6.3 g/dL (6.4-8.9)
[2016-12-09] MEDS: Senna TAB PO SCH (22:07)
[2016-12-09 22:09] LABS: Troponin I 0.03 ng/mL (<0.04)
[2016-12-09] MEDS ORDERED: Metoprolol Tartrate IV* 1 MG/ML 5 ML VIAL IV PRN (22:23)
[2016-12-10 00:22] LABS: EPAP 8; FIO2 40; IPAP 12
[2016-12-10 00:26] LABS: PCO2 Arterial 104 mmHg (35-45)
[2016-12-10 04:01] LABS: BUN/Creatinine Ratio 32.3 (8-20); Calcium 8.9 mg/dL (8.6-10.3); EGFR African American 117.7 (>60); EGFR Non-African American 91.5 (>60); Potassium 4.3 mmol/L (3.5-5.0)
[2016-12-10 04:06] LABS: Troponin I 0.04 ng/mL (<0.04)
[2016-12-10] MEDS ORDERED: Digoxin IV* 0.5 MG/2 ML AMP (0.25 MG/ML) IV SLOW PU ONE (07:52)
--- NOTE | 2016-12-10 08:10 | PN ---
Subjective Date of Service: 12/10/16 Interval History: Patient seen and examined at bedside. Her and 2 daughters are in the room with her. The patient was noted to be unresponsive and staring and was unable to follow commands. Neurologic workup was completed; patient was moved to ICU and started on BiPAP as it was determined she was in hypercapneic respiratory failure. Patient's CO2 was 104 on ABG. This morning, the patient is awake and is tracking my movements around the room. She is able to follow commands and squeezes my hands with equal auth specialist bilaterally. She is able to lift and move both lower extremities. She denies chest pain, abd pain, n/v. She nods her head when asked if her breathing feels better. She appears comfortable. Family expressed concern, as they were with her last evening and stated she was doing well. They do report that she was up walking around more than usual and feel that this extra exertion may have caused her to become more hypercapneic. Telemetry: Atrial fib/flutter 120s Family History: Unchanged from Admission Social History: Unchanged from Admission Past Medical History: Unchanged from Admission Objective Active Medications: Acetaminophen (Tylenol Tab*) 650 mg PO Q6H PRN PRN Reason: PAIN Albuterol/Ipratropium (Duoneb Neb.Nelli*) 1 neb INH Q4H PRN PRN Reason: SOB/WHEEZING Docusate Sodium (Colace Cap*) 200 mg PO BID [facility] Last Admin: 12/09/16 22:06 Dose: Not Given Furosemide (Lasix Tab*) 20 mg PO DAILY [facility] Magnesium Hydroxide (Milk Of Magnesia Liq*) 30 ml PO Q6H PRN PRN Reason: CONSTIPATION Last Admin: 12/01/16 13:14 Dose: 30 ml Metoprolol Tartrate (Lopressor Tab*) 100 mg PO BID [facility] Last Admin: 12/09/16 22:07 Dose: Not Given Metoprolol Tartrate (Lopressor Iv*) 5 mg IV Q6H PRN PRN Reason: BLOOD PRESSURE Last Admin: 12/09/16 23:06 Dose: 5 mg Mirtazapine (Remeron Tab*) 15 mg PO BEDTIME PRN PRN Reason: SLEEP Morphine Sulfate (Morphine Inj (Syringe)*) 2 mg IV Q4H PRN PRN Reason: SHORTNESS OF BREATH Last Admin: 12/05/16 04:46 Dose: 2 mg Ondansetron HCl (Zofran Inj*) 4 mg IV Q4H PRN PRN Reason: NAUSEA Polyethylene Glycol/Electrolytes (Miralax*) 17 gm PO DAILY [facility] Last Admin: 12/09/16 08:37 Dose: 17 gm Rivaroxaban (Xarelto (*)) 20 mg PO DAILY [facility] Last Admin: 12/09/16 08:39 Dose: 20 mg Senna (Senokot Tab*) 1 tab PO BEDTIME [facility] Last Admin: 12/09/16 22:07 Dose: Not Given Vital Signs 12/09/16 12/09/16 12/09/16 11:11 15:50 15:55 Temperature 97.8 F Pulse Rate 95 99 Respiratory 20 24 Rate Blood Pressure 134/80 (mmHg) O2 Sat by Pulse 93 95 Oximetry 12/09/16 12/09/16 12/09/16 17:54 19:25 20:00 Temperature Pulse Rate 95 Respiratory 22 20 Rate Blood Pressure (mmHg) O2 Sat by Pulse 100 93 Oximetry 12/09/16 12/09/16 12/09/16 21:30 21:33 21:45 Temperature 98 F Pulse Rate 115 110 105 Respiratory 37 37 31 Rate Blood Pressure 136/66 124/67 (mmHg) O2 Sat by Pulse 95 95 97 Oximetry 12/09/16 12/09/16 12/09/16 22:00 22:15 22:30 Temperature Pulse Rate 110 106 Respiratory 38 34 28 Rate Blood Pressure 129/69 100/53 104/61 (mmHg) O2 Sat by Pulse 94 96 Oximetry 12/09/16 12/09/16 12/09/16 22:45 22:50 23:00 Temperature Pulse Rate 111 105 Respiratory 33 39 35 Rate Blood Pressure 140/79 (mmHg) O2 Sat by Pulse 99 99 Oximetry 12/09/16 12/09/16 12/09/16 23:02 23:15 23:30 Temperature Pulse Rate 100 98 Respiratory 29 30 32 Rate Blood Pressure 100/49 90/56 126/67 (mmHg) O2 Sat by Pulse 100 99 Oximetry 12/09/16 12/09/16 12/10/16 23:45 23:53 00:00 Temperature 99.1 F Pulse Rate 103 Respiratory 31 25 Rate Blood Pressure 117/60 (mmHg) O2 Sat by Pulse 98 Oximetry 03/02/2112/10/16 12/10/16 00:01 00:15 00:30 Temperature Pulse Rate 102 86 99 Respiratory 35 28 25 Rate Blood Pressure 109/68 126/65 (mmHg) O2 Sat by Pulse 98 96 99 Oximetry 12/10/16 12/10/16 12/10/16 01:00 01:30 02:00 Temperature Pulse Rate Respiratory 24 12 13 Rate Blood Pressure 97/58 91/59 (mmHg) O2 Sat by Pulse Oximetry 12/10/16 12/10/16 12/10/16 03:00 03:42 03:54 Temperature 98.6 F Pulse Rate Respiratory 18 19 Rate Blood Pressure 101/57 (mmHg) O2 Sat by Pulse Oximetry 12/10/16 12/10/16 12/10/16 04:00 05:00 05:30 Temperature Pulse Rate 95 98 Respiratory 12 23 20 Rate Blood Pressure 87/53 105/64 (mmHg) O2 Sat by Pulse 97 99 Oximetry 12/10/16 12/10/16 12/10/16 05:48 06:00 06:30 Temperature Pulse Rate 101 105 Respiratory 20 17 4 Rate Blood Pressure 113/74 (mmHg) O2 Sat by Pulse 97 96 Oximetry 12/10/16 12/10/16 12/10/16 07:00 07:30 08:00 Temperature 98.1 F Pulse Rate 107 108 107 Respiratory 1 11 19 Rate Blood Pressure 100/70 (mmHg) O2 Sat by Pulse 96 97 100 Oximetry Oxygen Devices in Use Now: CPAP/BiPAP - 30% FiO2 Appearance: Frail, elderly female, lying in bed, with BiPAP mask, in NAD. Alert and following commands. Eyes: PERRLA Neck: NL Appearance and Movements; NL JVP Respiratory: Symmetrical Chest Expansion and Respiratory Effort, - - diminished breath sounds Cardiovascular: - - irregularly irregular rate/rhythm, tachycardic Abdominal: NL Sounds; No Tenderness; No Distention Extremities: No Edema, No Clubbing, Cyanosis Skin: No Rash or Ulcers Neurological: - - alert, responds appropriately to commands Lines/Tubes/Other Access: Clean, Dry and Intact Peripheral IV Result Diagrams: 12/09/16 21:43 12/10/16 03:40 Additional Lab and Data: Laboratory Tests 12/01/16 12/01/16 12/02/16 09:33 16:31 03:44 ABG pH ABG pCO2 ABG pO2 ABG HCO3 VBG pH 7.30 L 7.34 7.22 L VBG pCO2 109 H 86 H VBG pO2 32 L 45 41 VBG HCO3 41.2 H 37.8 H 40.4 H 12/02/16 04:30 ABG pH 7.27 L ABG pCO2 116 H* ABG pO2 74 L ABG HCO3 41.4 H* VBG pH VBG pCO2 VBG pO2 VBG HCO3 Laboratory Tests 12/03/16 12/04/16 10:37 05:25 VBG pH 7.39 7.38 VBG pCO2 98 H 102 H VBG pO2 40 34 L VBG HCO3 45.8 H 47.1 H Diagnostic Imaging: CT chest 11/27 - atelectasis R lung base Echo - LVEF 55-60%, reduced RV fxn with mod pulm HTN Tele - afib rate ~80 CTA chest 11/29 - No PE, Consolidation of RLL v atelectasis with sm B pleural effusions CXR - 12/02 - mod R pleural effusion and consolidation CXR 12/03 - improved effusion, elevated R hemidiaphragm CXR 12/04 - unchanged from prior Assess/Plan/Problems-Billing Assessment: Ms. Weaver is a 86 yo female with a PMH of chronic atrial fibrillation, esophagitis, gastritis, anemia, angiodysplasia, and HTN who presented to the ED on 11/27/16 with SOB and incidental finding of UTI. Repeat CT suggests presence of PNA with associated effusion and acute respiratory failure. - Patient Problems (1) Acute respiratory failure Code(s): J96.00 - ACUTE RESPIRATORY FAILURE, UNSP W HYPOXIA OR HYPERCAPNIA Comment: Moved to ICU last evening with concern for hypercapneic respiratory failure - exacerbation possibly secondary to increased activity last evening. Previously noted to have hypoxic and hypercarbic resp failure with a combination of CHF earlier this admission. Was previously on 3-4L nc. Plan to wean patient off BiPAP and try to qualify her for home BiPAP in order to provide her with extra support when she is discharged to rehab. Repeat CXR. Palliative consult with Dr. Gutiérrez, plan for DNR/DNI. Pt desires limited interventions but wants subacute rehab to be able to go home. (2) CAP (community acquired pneumonia) Code(s): J18.9 - PNEUMONIA, UNSPECIFIED ORGANISM Comment: RLL consolidation noted on repeat CT with associated atelectasis. Treated for CAP - finished full course of abx. Her kyphosis contributes to her poor inspiratory effort. (3) Pulmonary hypertension Code(s): I27.2 - OTHER SECONDARY PULMONARY HYPERTENSION Comment: Unsure of chronicity or etiology. No h/o lung dz. Perhaps untreated HARLAN or restrictive lung process d/t her kyphosis. No PE on CTA. (4) UTI (urinary tract infection) Comment: Urine culture grew pansensitive E Coli. Finished abx treatment. (5) Bilateral lower extremity edema Code(s): R60.0 - LOCALIZED EDEMA Comment: Improving, continue LE compression. (6) Chronic atrial fibrillation Code(s): I48.2 - CHRONIC ATRIAL FIBRILLATION Comment: With rapid ventricular response. Increased rate this AM. Give digoxin x 1 dose. Continue metoprolol tartrate 100 mg BID. Diltiazem discontinued, as patient's BP did not tolerate medication. Continue rivaroxaban. (7) DVT prophylaxis Code(s): [id number] - Comment: Jermaine (8) DNI (do not intubate) Code(s): Z78.9 - OTHER SPECIFIED HEALTH STATUS Comment: (9) DNR (do not resuscitate) Status and Disposition: Inpatient with acute respiratory failure. Plan for subacute rehab when medically stable.
[2016-12-10] MEDS: Polyethylene Glycol 3350* 17 GM PACKET PO SCH (08:42)
[2016-12-10] MEDS: Furosemide TAB* 20 MG PO SCH (08:42)
[2016-12-10] MEDS: Docusate CAP* 100 MG PO SCH ×2 (08:42→20:33)
[2016-12-10] MEDS: Metoprolol Tartrate TAB* 100 MG TAB PO SCH ×2 (08:42→20:33)
--- NOTE | 2016-12-10 08:48 | RAD ---
INDICATION: Respiratory failure. COMPARISON: Comparison is made with prior study from December 08, 2016. TECHNIQUE: A portable view of the chest was obtained. FINDINGS: The heart appears mildly prominent and unchanged from the prior exam. There are focal bibasilar infiltrates which have progressed slightly from the prior study. There appears to be a trace right pleural effusion which is unchanged. IMPRESSION: BIBASILAR INFILTRATES DEMONSTRATING SLIGHT PROGRESSION.
[2016-12-10] MEDS: Rivaroxaban TAB(*) 20 MG TAB PO SCH (09:05)
[2016-12-10] MEDS ORDERED: Furosemide IV* 10 MG/ML 2 ML VIAL (20 MG) IV SLOW PU ONE (11:47)
[2016-12-10] MEDS: Senna TAB PO SCH (20:33)
[2016-12-11 05:42] LABS: Hematocrit 25 % (35-47); Hemoglobin 7.9 g/dl (12.0-16.0); Mean Corpuscular HGB Conc 32 g/dl (31-36); Mean Corpuscular Hemoglobin 33 pg (27-31); Mean Corpuscular Volume 102 fL (80-97); Mean Platelet Volume 10 um3 (7.4-10.4); Red Blood Count 2.41 10^6/ul (4.0-5.4); Red Cell Distribution Width 14 % (10.5-15)
[2016-12-11 06:05] LABS: BUN/Creatinine Ratio 44.7 (8-20); Calcium 6.5 mg/dL (8.6-10.3); Potassium 3.2 mmol/L (3.5-5.0)
[2016-12-11] MEDS ORDERED: Potassium Chlor TAB* 20 MEQ TAB.ER PO ONE (07:24)
--- NOTE | 2016-12-11 08:04 | PN ---
Subjective Date of Service: 12/11/16 Interval History: Patient seen and examined at bedside. She denies pain, CP, SOB, abd pain, n/v. She states, "I feel fine." No acute nursing concerns. Patient on home O2 setting throughout evening and overnight. Telemetry: Atrial fib 80s-90s Family History: Unchanged from Admission Social History: Unchanged from Admission Past Medical History: Unchanged from Admission Objective Active Medications: Acetaminophen (Tylenol Tab*) 650 mg PO Q6H PRN PRN Reason: PAIN Albuterol/Ipratropium (Duoneb Neb.Nelli*) 1 neb INH Q4H PRN PRN Reason: SOB/WHEEZING Docusate Sodium (Colace Cap*) 200 mg PO BID [facility] Last Admin: 12/10/16 20:33 Dose: 200 mg Furosemide (Lasix Tab*) 20 mg PO DAILY [facility] Last Admin: 12/10/16 08:42 Dose: 20 mg Magnesium Hydroxide (Milk Of Magnesia Liq*) 30 ml PO Q6H PRN PRN Reason: CONSTIPATION Last Admin: 12/01/16 13:14 Dose: 30 ml Metoprolol Tartrate (Lopressor Tab*) 100 mg PO BID [facility] Last Admin: 12/10/16 20:33 Dose: 100 mg Metoprolol Tartrate (Lopressor Iv*) 5 mg IV Q6H PRN PRN Reason: BLOOD PRESSURE Last Admin: 12/09/16 23:06 Dose: 5 mg Mirtazapine (Remeron Tab*) 15 mg PO BEDTIME PRN PRN Reason: SLEEP Morphine Sulfate (Morphine Inj (Syringe)*) 2 mg IV Q4H PRN PRN Reason: SHORTNESS OF BREATH Last Admin: 12/05/16 04:46 Dose: 2 mg Ondansetron HCl (Zofran Inj*) 4 mg IV Q4H PRN PRN Reason: NAUSEA Polyethylene Glycol/Electrolytes (Miralax*) 17 gm PO DAILY [facility] Last Admin: 12/10/16 08:42 Dose: 17 gm Rivaroxaban (Xarelto (*)) 20 mg PO DAILY [facility] Last Admin: 12/10/16 09:05 Dose: 20 mg Senna (Senokot Tab*) 1 tab PO BEDTIME [facility] Last Admin: 12/10/16 20:33 Dose: 1 tab Vital Signs 12/10/16 12/10/16 12/10/16 08:00 08:30 09:00 Temperature 98.1 F Pulse Rate 107 109 Respiratory 19 38 38 Rate Blood Pressure 133/69 (mmHg) O2 Sat by Pulse 100 98 Oximetry 12/10/16 12/10/16 12/10/16 09:30 10:00 10:30 Temperature Pulse Rate 37 93 93 Respiratory 31 32 Rate Blood Pressure 114/68 (mmHg) O2 Sat by Pulse 82 96 98 Oximetry 12/10/16 12/10/16 12/10/16 11:00 11:30 12:00 Temperature 99.5 F Pulse Rate 96 91 102 Respiratory 38 34 38 Rate Blood Pressure 121/78 99/56 (mmHg) O2 Sat by Pulse 98 99 96 Oximetry 12/10/16 12/10/16 12/10/16 12:30 13:00 13:30 Temperature Pulse Rate 105 96 105 Respiratory 38 28 29 Rate Blood Pressure 101/65 (mmHg) O2 Sat by Pulse 85 95 95 Oximetry 12/10/16 12/10/16 12/10/16 14:00 14:30 15:00 Temperature Pulse Rate 107 105 110 Respiratory 37 34 32 Rate Blood Pressure 130/83 122/74 (mmHg) O2 Sat by Pulse 95 94 94 Oximetry 12/10/16 12/10/16 12/10/16 15:30 15:39 16:00 Temperature 98.2 F Pulse Rate 109 108 Respiratory 36 35 33 Rate Blood Pressure 134/70 (mmHg) O2 Sat by Pulse 95 94 Oximetry 12/10/16 12/10/16 12/10/16 16:21 16:30 17:00 Temperature 98.2 F Pulse Rate 99 109 Respiratory 25 36 Rate Blood Pressure 103/65 (mmHg) O2 Sat by Pulse 95 96 Oximetry 12/10/16 12/10/16 12/10/16 17:30 18:00 19:00 Temperature Pulse Rate 101 99 Respiratory 34 32 27 Rate Blood Pressure 113/82 (mmHg) O2 Sat by Pulse 96 96 Oximetry 12/10/16 12/10/16 12/10/16 19:32 20:00 21:00 Temperature 98.5 F Pulse Rate 104 Respiratory 34 29 32 Rate Blood Pressure 125/55 136/70 126/66 (mmHg) O2 Sat by Pulse 96 Oximetry 12/10/16 12/10/16 12/10/16 22:00 23:00 23:54 Temperature 98.2 F Pulse Rate 84 93 Respiratory 30 22 Rate Blood Pressure 111/69 105/64 (mmHg) O2 Sat by Pulse 97 96 Oximetry 12/10/16 12/11/16 12/11/16 23:57 00:01 01:00 Temperature Pulse Rate 93 89 Respiratory 24 23 19 Rate Blood Pressure 89/52 108/57 (mmHg) O2 Sat by Pulse 99 100 Oximetry 12/11/16 12/11/16 12/11/16 02:00 03:00 03:06 Temperature Pulse Rate 85 88 Respiratory 11 24 21 Rate Blood Pressure 102/63 119/67 (mmHg) O2 Sat by Pulse 99 97 Oximetry 12/11/16 12/11/16 12/11/16 04:00 05:00 05:35 Temperature 97.0 F Pulse Rate 83 78 Respiratory 25 19 22 Rate Blood Pressure 114/69 105/54 (mmHg) O2 Sat by Pulse 99 98 Oximetry 12/11/16 12/11/16 12/11/16 06:00 07:00 07:46 Temperature 98.3 F Pulse Rate 82 87 Respiratory 29 34 32 Rate Blood Pressure 109/66 108/66 (mmHg) O2 Sat by Pulse 97 96 Oximetry Oxygen Devices in Use Now: Nasal Cannula - 2L Appearance: Elderly, frail female, lying in bed, in NAD Eyes: PERRLA Ears/Nose/Mouth/Throat: Clear Oropharnyx, Mucous Membranes Moist Neck: NL Appearance and Movements; NL JVP Respiratory: Symmetrical Chest Expansion and Respiratory Effort, - - diminished lung sounds throughout Cardiovascular: - - S1, S2, irregular rate/rhythm Abdominal: NL Sounds; No Tenderness; No Distention Extremities: No Edema, No Clubbing, Cyanosis Skin: No Rash or Ulcers Neurological: Alert and Oriented x 3 Lines/Tubes/Other Access: Clean, Dry and Intact Peripheral IV Nutrition: Taking PO's Result Diagrams: 12/11/16 05:30 12/11/16 05:30 Additional Lab and Data: Laboratory Tests 12/01/16 12/01/16 12/02/16 09:33 16:31 03:44 ABG pH ABG pCO2 ABG pO2 ABG HCO3 VBG pH 7.30 L 7.34 7.22 L VBG pCO2 109 H 86 H VBG pO2 32 L 45 41 VBG HCO3 41.2 H 37.8 H 40.4 H 12/02/16 04:30 ABG pH 7.27 L ABG pCO2 116 H* ABG pO2 74 L ABG HCO3 41.4 H* VBG pH VBG pCO2 VBG pO2 VBG HCO3 Laboratory Tests 12/03/16 12/04/16 10:37 05:25 VBG pH 7.39 7.38 VBG pCO2 98 H 102 H VBG pO2 40 34 L VBG HCO3 45.8 H 47.1 H Diagnostic Imaging: CT chest 11/27 - atelectasis R lung base Echo - LVEF 55-60%, reduced RV fxn with mod pulm HTN Tele - afib rate ~80 CTA chest 11/29 - No PE, Consolidation of RLL v atelectasis with sm B pleural effusions CXR - 12/02 - mod R pleural effusion and consolidation CXR 12/03 - improved effusion, elevated R hemidiaphragm CXR 12/04 - unchanged from prior Assess/Plan/Problems-Billing Assessment: Ms. Weaver is a 86 yo female with a PMH of chronic atrial fibrillation, esophagitis, gastritis, anemia, angiodysplasia, and HTN who presented to the ED on 11/27/16 with SOB and incidental finding of UTI. Repeat CT suggests presence of PNA with associated effusion and acute respiratory failure. - Patient Problems (1) Acute respiratory failure Code(s): J96.00 - ACUTE RESPIRATORY FAILURE, UNSP W HYPOXIA OR HYPERCAPNIA Comment: Previously on BiPAP for hypercapneic respiratory failure. Improved on BiPAP and weaned off BiPAP therapy, now on home O2 settings. Overnight pulse oximetry ordered in order to qualify patient for home BiPAP machine. Previously noted to have hypoxic and hypercarbic resp failure with a combination of CHF earlier this admission. Was previously on 3-4L nc. Repeat CXR shows concern for some interstitial edema and presence of bibasilar infiltrates, perhaps with slight progression; antibiotic course completed and patient clinically improving. Palliative consult with Dr. Gutiérrez, plan for DNR/DNI. Pt desires limited interventions but wants subacute rehab to be able to go home. (2) CAP (community acquired pneumonia) Code(s): J18.9 - PNEUMONIA, UNSPECIFIED ORGANISM Comment: RLL consolidation noted on repeat CT with associated atelectasis. Treated for CAP - finished full course of abx. Her kyphosis contributes to her poor inspiratory effort. (3) Pulmonary hypertension Code(s): I27.2 - OTHER SECONDARY PULMONARY HYPERTENSION Comment: Unsure of chronicity or etiology. No h/o lung dz. Perhaps untreated HARLAN or restrictive lung process d/t her kyphosis. No PE on CTA. (4) UTI (urinary tract infection) Comment: Urine culture grew pansensitive E Coli. Finished abx treatment. (5) Bilateral lower extremity edema Code(s): R60.0 - LOCALIZED EDEMA Comment: Improving, continue LE compression. (6) Chronic atrial fibrillation Code(s): I48.2 - CHRONIC ATRIAL FIBRILLATION Comment: With rapid ventricular response, now rate controlled. Continue metoprolol tartrate 100 mg BID. Diltiazem discontinued, as patient's BP did not tolerate medication. Continue rivaroxaban. (7) DVT prophylaxis Code(s): [id number] - Comment: Basiareljosue (8) DNI (do not intubate) Code(s): Z78.9 - OTHER SPECIFIED HEALTH STATUS Comment: (9) DNR (do not resuscitate) Status and Disposition: Inpatient with acute respiratory failure. Plan for subacute rehab when medically stable.
[2016-12-11] MEDS: Rivaroxaban TAB(*) 20 MG TAB PO SCH (08:14)
[2016-12-11] MEDS: Docusate CAP* 100 MG PO SCH ×2 (08:14→20:16)
[2016-12-11] MEDS: Polyethylene Glycol 3350* 17 GM PACKET PO SCH (08:14)
[2016-12-11] MEDS: Metoprolol Tartrate TAB* 100 MG TAB PO SCH ×2 (08:14→20:15)
[2016-12-11] MEDS: Furosemide TAB* 20 MG PO SCH (08:14)
[2016-12-11 18:08] LABS: Hematocrit 38 % (35-47); Hemoglobin 12.2 g/dl (12.0-16.0)
[2016-12-11] MEDS: Senna TAB PO SCH (20:15)
[2016-12-12 05:50] LABS: Hematocrit 35 % (35-47); Hemoglobin 11.5 g/dl (12.0-16.0); Mean Corpuscular HGB Conc 33 g/dl (31-36); Mean Corpuscular Hemoglobin 33 pg (27-31); Mean Corpuscular Volume 101 fL (80-97); Mean Platelet Volume 10 um3 (7.4-10.4); Red Blood Count 3.48 10^6/ul (4.0-5.4); Red Cell Distribution Width 14 % (10.5-15); White Blood Count 6.9 10^3/ul (3.5-10.8)
[2016-12-12 08:59] VITALS: BP 140/81
--- NOTE | 2016-12-12 09:43 | PN ---
Subjective Date of Service: 12/12/16 Interval History: Patient seen and examined at bedside. When asked how she is doing, she states, "I'm as full as a tick." Her reports that she ate a large breakfast. I asked if she had abdominal pain, and she states, "No. I'm just full." Patient encouraged to ambulate to help promote digestion. She denies CP, changes to her breathing, abd pain, n/v. She denies any pain or other complaints. When asked if she felt ready to go to rehab today, she states, "I guess so" and asks her how he feels. Her does not have any concerns and is hopeful for her to be discharged to [facility] today. He has brought clothes for her. I did advise the patient that BiPAP use at night would provide ventilatory support, given her restrictive lung disease and kyphosis. She verbalizes understanding of this, as does her . Family History: Unchanged from Admission Social History: Unchanged from Admission Past Medical History: Unchanged from Admission Objective Active Medications: Acetaminophen (Tylenol Tab*) 650 mg PO Q6H PRN PRN Reason: PAIN Albuterol/Ipratropium (Duoneb Neb.Nelli*) 1 neb INH Q4H PRN PRN Reason: SOB/WHEEZING Docusate Sodium (Colace Cap*) 200 mg PO BID [facility] Last Admin: 12/11/16 20:16 Dose: 200 mg Furosemide (Lasix Tab*) 20 mg PO DAILY [facility] Last Admin: 12/11/16 08:14 Dose: 20 mg Magnesium Hydroxide (Milk Of Magnesia Liq*) 30 ml PO Q6H PRN PRN Reason: CONSTIPATION Last Admin: 12/01/16 13:14 Dose: 30 ml Metoprolol Tartrate (Lopressor Tab*) 100 mg PO BID [facility] Last Admin: 12/11/16 20:15 Dose: 100 mg Metoprolol Tartrate (Lopressor Iv*) 5 mg IV Q6H PRN PRN Reason: BLOOD PRESSURE Last Admin: 12/09/16 23:06 Dose: 5 mg Mirtazapine (Remeron Tab*) 15 mg PO BEDTIME PRN PRN Reason: SLEEP Morphine Sulfate (Morphine Inj (Syringe)*) 2 mg IV Q4H PRN PRN Reason: SHORTNESS OF BREATH Last Admin: 12/05/16 04:46 Dose: 2 mg Ondansetron HCl (Zofran Inj*) 4 mg IV Q4H PRN PRN Reason: NAUSEA Polyethylene Glycol/Electrolytes (Miralax*) 17 gm PO DAILY [facility] Last Admin: 12/11/16 08:14 Dose: 17 gm Rivaroxaban (Xarelto (*)) 20 mg PO DAILY [facility] Last Admin: 12/11/16 08:14 Dose: 20 mg Senna (Senokot Tab*) 1 tab PO BEDTIME [facility] Last Admin: 12/11/16 20:15 Dose: 1 tab Vital Signs 12/11/16 12/11/16 12/11/16 10:06 10:08 10:15 Temperature 98.0 F Pulse Rate 87 87 82 Respiratory 26 26 24 Rate Blood Pressure 126/79 126/79 (mmHg) O2 Sat by Pulse 93 93 93 Oximetry 12/11/16 12/11/16 12/11/16 12:16 15:07 21:48 Temperature 97.8 F 97.8 F Pulse Rate 106 100 Respiratory 16 24 22 Rate Blood Pressure 123/82 138/79 (mmHg) O2 Sat by Pulse 97 95 Oximetry 12/12/16 12/12/16 12/12/16 00:02 04:51 05:47 Temperature 97.4 F 97.4 F Pulse Rate 96 104 93 Respiratory 40 14 24 Rate Blood Pressure 114/68 147/91 (mmHg) O2 Sat by Pulse 90 96 95 Oximetry 12/12/16 12/12/16 12/12/16 07:23 08:18 08:59 Temperature 97.6 F 97.5 F Pulse Rate 94 96 Respiratory 22 18 Rate Blood Pressure 141/79 140/81 (mmHg) O2 Sat by Pulse 98 98 Oximetry Oxygen Devices in Use Now: Nasal Cannula - 3L Appearance: Frail, elderly female, with kyphosis, sitting up in bed, in NAD Eyes: PERRLA Ears/Nose/Mouth/Throat: Clear Oropharnyx, Mucous Membranes Moist Neck: NL Appearance and Movements; NL JVP Respiratory: Symmetrical Chest Expansion and Respiratory Effort, - - diminished , poor respiratory effort but within patient's baseline Cardiovascular: - - S1, S2, irregularly irregular rate/rhythm Abdominal: NL Sounds; No Tenderness; No Distention Extremities: No Clubbing, Cyanosis Neurological: Alert and Oriented x 3 - follows commands, answers appropriately Lines/Tubes/Other Access: Clean, Dry and Intact Peripheral IV Nutrition: Taking PO's Result Diagrams: 12/12/16 05:40 12/11/16 05:30 Additional Lab and Data: Laboratory Tests 12/01/16 12/01/16 12/02/16 09:33 16:31 03:44 ABG pH ABG pCO2 ABG pO2 ABG HCO3 VBG pH 7.30 L 7.34 7.22 L VBG pCO2 109 H 86 H VBG pO2 32 L 45 41 VBG HCO3 41.2 H 37.8 H 40.4 H 12/02/16 04:30 ABG pH 7.27 L ABG pCO2 116 H* ABG pO2 74 L ABG HCO3 41.4 H* VBG pH VBG pCO2 VBG pO2 VBG HCO3 Laboratory Tests 12/03/16 12/04/16 10:37 05:25 VBG pH 7.39 7.38 VBG pCO2 98 H 102 H VBG pO2 40 34 L VBG HCO3 45.8 H 47.1 H Diagnostic Imaging: CT chest 11/27 - atelectasis R lung base Echo - LVEF 55-60%, reduced RV fxn with mod pulm HTN Tele - afib rate ~80 CTA chest 11/29 - No PE, Consolidation of RLL v atelectasis with sm B pleural effusions CXR - 12/02 - mod R pleural effusion and consolidation CXR 12/03 - improved effusion, elevated R hemidiaphragm CXR 12/04 - unchanged from prior Assess/Plan/Problems-Billing Assessment: Ms. Weaver is a 86 yo female with a PMH of chronic atrial fibrillation, esophagitis, gastritis, anemia, angiodysplasia, and HTN who presented to the ED on 11/27/16 with SOB and incidental finding of UTI. Repeat CT suggests presence of PNA with associated effusion and acute respiratory failure. - Patient Problems (1) Acute respiratory failure Code(s): J96.00 - ACUTE RESPIRATORY FAILURE, UNSP W HYPOXIA OR HYPERCAPNIA Comment: Previously on BiPAP for hypercapneic respiratory failure. Improved on BiPAP and weaned off BiPAP therapy, now on home O2 settings. Plan to continue BiPAP at night at [facility] Previously noted to have hypoxic and hypercarbic resp failure with a combination of CHF earlier this admission. Was previously on 3-4L nc. Repeat CXR shows concern for some interstitial edema and presence of bibasilar infiltrates, perhaps with slight progression; antibiotic course completed and patient clinically improving. No fevers or leukocytosis prior to discharge. Palliative consult with Dr. Gutiérrez, plan for DNR/DNI. Pt desires limited interventions but wants subacute rehab to be able to go home. (2) CAP (community acquired pneumonia) Code(s): J18.9 - PNEUMONIA, UNSPECIFIED ORGANISM Comment: RLL consolidation noted on repeat CT with associated atelectasis. Treated for CAP - finished full course of abx. CXR /5 shows slight progression of bibasilar infiltrates. However, patient is on baseline O2, is afebrile, and has no leukocytosis. Clinically, she is improving. Her kyphosis contributes to her poor inspiratory effort. (3) Pulmonary hypertension Code(s): I27.2 - OTHER SECONDARY PULMONARY HYPERTENSION Comment: Unsure of chronicity or etiology. No h/o lung dz. Perhaps untreated HARLAN or restrictive lung process d/t her kyphosis. No PE on CTA. (4) UTI (urinary tract infection) Comment: Urine culture grew pansensitive E Coli. Finished abx treatment. (5) Bilateral lower extremity edema Code(s): R60.0 - LOCALIZED EDEMA Comment: Improving, continue LE compression. (6) Chronic atrial fibrillation Code(s): I48.2 - CHRONIC ATRIAL FIBRILLATION Comment: With rapid ventricular response, now rate controlled. Continue metoprolol tartrate 100 mg BID. Diltiazem discontinued, as patient's BP did not tolerate medication. Continue rivaroxaban. (7) DVT prophylaxis Code(s): MJO5151 - Comment: Xarelto (8) DNI (do not intubate) Code(s): Z78.9 - OTHER SPECIFIED HEALTH STATUS Comment: (9) DNR (do not resuscitate) Status and Disposition: Inpatient with acute respiratory failure. D/c to [facility].
[2016-12-12] MEDS: Polyethylene Glycol 3350* 17 GM PACKET PO SCH (09:54)
[2016-12-12] MEDS: Docusate CAP* 100 MG PO SCH (09:54)
[2016-12-12] MEDS: Rivaroxaban TAB(*) 20 MG TAB PO SCH (10:02)
[2016-12-12] MEDS: Furosemide TAB* 20 MG PO SCH (10:02)
[2016-12-12] MEDS: Metoprolol Tartrate TAB* 100 MG TAB PO SCH (10:02)
--- NOTE | 2016-12-12 11:51 | DS ---
DATE OF ADMISSION: 11/27/2016. DATE OF DISCHARGE: 12/12/2016. PROVIDER: Annette Licea NP. ATTENDING PHYSICIAN: Dr. Jorje Castillo* (as dictated by Annette Licea NP). CONSULTING PHYSICIAN: Dr. Sophia Gutiérrez with Palliative Care services. PRIMARY CARE PHYSICIAN: Dr. Danyell De La Garza. PRIMARY DISCHARGE DIAGNOSES: 1. Acute respiratory failure. 2. Community acquired pneumonia. 3. Urinary tract infection. SECONDARY DISCHARGE DIAGNOSES: 1. Chronic atrial fibrillation. 2. History of esophagitis and gastritis. 3. History of anemia. 4. Hypertension. 5. Pulmonary hypertension. 6. Chronic bilateral lower extremity edema. MEDICATIONS AT DISCHARGE: 1. Furosemide 20 mg daily. 2. Xarelto 20 mg daily. 3. Senna one tab at bedtime. 4. MiraLax 17 gm daily. 5. Mirtazapine 15 mg at bedtime prn. 6. Metoprolol tartrate 100 mg b.i.d. 7. Docusate 200 mg b.i.d. 8. DuoNeb one neb inhaled q.4 hours prn. 9. Acetaminophen 650 mg q.6 hours prn. Patient's previous Ramipril, diltiazem, and Metoprolol succinate XL has been discontinued. DIAGNOSTIC TESTING DURING PATIENT'S STAY: 1. Transthoracic echocardiogram on 11/27/2016: Conclusion: There is normal left ventricular systolic function. The estimated ejection fraction is 55 to 60 percent. There is septal flattening of the interventricular septum consistent with right ventricular volume or pressure overload. The right ventricular global systolic function is mildly reduced. The aortic valve leaflets are mildly thickened. There is trace to mild aortic regurgitation. The mitral valve leaflets are moderately thickened. There is moderate mitral regurgitation. There is mild to moderate tricuspid regurgitation. There is evidence of moderate pulmonary hypertension. There is no significant pericardial effusion. There are no significant changes when compared to the previous study done on 11/09/2015. 2. CT of the chest, abdomen, and pelvis on 11/27/2016: Impression: (1) No free intraperitoneal gas. (2) Dependent atelectasis of the right lung base. 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 (4 ) Atherosclerosis. (5) Right inguinal hernia containing loops of small bowel, without obstruction. (6) Large amount of stool within the colon. 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 (8) Age indeterminate compression deformity of T6 without significant osseous retropulsion. 3. CTA of the chest and thorax on 11/29/2016: Impression: No evidence of pulmonary embolus is noted. There is right lower lobe consolidation or atelectasis with small pleural effusions bilaterally. 4. Chest x-ray, most recent on 12/10/2016: Impression: Bibasilar infiltrates demonstrating slight progression. 5. CT of the brain on 12/09/2016: Impression: (1) No evidence for gross acute infarct, mass effect or hemorrhage. (2) Atrophy and findings consistent with moderate to severe chronic small vessel ischemic changes. 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 HOSPITAL COURSE AND STAY: For full details, please refer to the history and physical provided by Dr. Castillo on 11/27/2016, as well as the progress notes and medical record. In summary, Ms. Weaver is an 86-year-old female who presented to the ER on 11/27/2016 with complaints of increasing shortness of breath over several weeks. She had a fall at home and her daughters were concerned for the patient's condition and increasing dyspnea. The patient has not been a reliable source of information as she often states she does not know why she is here, but her family reports that she has not been always compliant with lymphedema stockings and question her compliance with her medications at home. 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 There was the initial question of CHF versus infection; this was difficult to determine, given the patient's poor reliability and history. As the patient progressed in her stay here in the hospital, her chest x-rays denoted infiltrates concerning for RLL pneumonia. She has been treated with Lasix and fully treated with antibiotics; however, she continued to decompensate and became increasingly more confused. An ABG at that time indicated that she was in hypercapnic respiratory failure, and she was put on BiPAP and transferred to the ICU. At this point, the patient had her MOLST updated to include a DNI; however, she was still full CPR at that time. It was felt that with her kyphosis and restrictive lung disease, as well as her recent decompensation and frailty, that she would not do well intubated and tolerate a successful wean and extubation. She was transitioned to Vapotherm as she did not tolerate BiPAP and a family meeting was held. The patient indicated that she did not want any more aggressive treatments and wanted to be able to peacefully; however, the patient indicated having her family weigh in on the decision was important as they would likely push back on whatever she decided. The family expressed concern that the patient appeared to be somewhat altered in her recollection of events. They felt that she was not in the appropriate state of mind to be making these decisions and over the course of her stay here, her mentation did improve as well as her respiratory status. As she improved she no longer became a candidate for hospice by respiratory criteria. Once improved, the patient was noted to be in better spirits and expressed interest in rehab so that she can make it to assisted living or home. She expressed desire to be back at home with her dog. It was noted in the Palliative Care notes that the patient would be a good candidate for a path referral program, which is an outpatient palliative care program. The patient was able to demonstrate good progress with physical and occupational therapies here in the hospital. We initially had a plan of discharge for her to home on 12/11/2016; however, over the weekend the patient became obtunded on the evening of 12/09/2016 with concern for stroke. However, her neurological work-up was benign and it was noted that the patient was hypercapnic with a CO2 level of 104. She was transferred to the ICU overnight for rescue BiPAP and was able to be weaned from the BiPAP the following day and placed back on her home nasal cannula settings. It was felt that with the patient's restrictive lung disease and kyphosis as previously mentioned, that she is at risk for having recurrent hypercapnic respiratory failure. It was recommended that she utilize the BiPAP machine at nighttime in order to provide further respiratory support so that she can participate in rehab and have improved quality of life and respiratory status. In working with Respiratory, we determined the patient can be maintained on BiPAP on auto settings; however, if she does require settings 16/6 is appropriate for this patient and can be titrated for her comfort. In terms of the patient's acute respiratory failure, which is likely acute on chronic, though it was first noted here in the hospital, she is on her home O2 settings of two to four liters and is able to perform her activities of daily living. Her O2 sats are stable in the 90s. In regards to her community acquired pneumonia, she has been treated for her infiltrates and has finished a full course of antibiotics. Her most recent CXR shows bibasilar infiltrates, however, the patient clinically as been improving. Ms. Weaver's kyphosis contributes to her poor inspiratory effort; however, she has not had any further fevers here and demonstrates no leukocytosis. In regards to her UTI, her urine culture grew pansensitive E. coli. She has finished her antibiotic treatment. In regards to her chronic atrial fibrillation, she is rate controlled. We have switched her Metoprolol tartrate 100 mg b.i.d. for better rate control. Her Diltiazem was discontinued as she did not tolerated this medication. She continues to be on Xarelto for anticoagulation. For her pulmonary hypertension, the chronicity of this is unclear and may be related to untreated HARLAN or restrictive lung process due to her kyphosis. No PE was noted on her CTA. On the day of discharge, the patient is at her baseline mental state per her family. She is afebrile. Her oxygen levels are stable. Her vital signs are stable and labs are unremarkable. She is looking forward to trying rehab, and her is at bedside and is in agreement with the plan. No acute concerns expressed by patient or spouse. CONCERNS AT DISCHARGE: Ms. Weaver will be discharged to [facility] for subacute rehab on 12/12/2016. She should follow-up with her PCP or the facility physician. She should use her BiPAP machine at nighttime as previously indicated. DIET: Recommend low sodium diet. The patient may resume a regular diet to encourage her to have good p.o. intake. ACTIVITY: As tolerated. The patient is advised to use her walker. CONDITION: Stable. DISPOSITION: [facility]. TIME SPENT: Time spent on this discharge was approximately 45 minutes. Again, this is only a brief summary of this patient's hospital course and stay. For full details, please refer to the full medical record. If you have any further questions or need further assistance, please feel free to contact me at [phone]. ANNETTE LICEA NP CC: Dr. Danyell De La Garza * [id number]/[facility] #: [id number] DUANE
== END 2016-12-12 13:20 | DRG 193 ==
LOC: ED 10:30 → MEDTELE 16:05 → ICU 12-02 05:03 → MED 12-06 09:12 → ICU 12-09 21:15 → MED 12-11 07:56
PROVIDERS: ADMIT Internal Medicine; ATTEND Internal Medicine
PROC: 5A09457 Assistance with Respiratory Ventilation, 24-96 Consecutive Hours, Continuous Positive Airway Pressure (ICD-10-PCS; principal; 2016-11-27)
PROC: 5A12012 Performance of Cardiac Output, Single, Manual (ICD-10-PCS; 2016-12-05)
DX: J18.9 Pneumonia, unspecified organism (principal); J96.22 Acute and chronic respiratory failure with hypercapnia; J96.21 Acute and chronic respiratory failure with hypoxia; E87.3 Alkalosis; I50.9 Heart failure, unspecified; I11.0 Hypertensive heart disease with heart failure; N39.0 Urinary tract infection, site not specified; I27.2 Other secondary pulmonary hypertension; Z82.49 Family history of ischemic heart disease and other diseases of the circulatory system; Z80.41 Family history of malignant neoplasm of ovary; K59.00 Constipation, unspecified; I48.2 Chronic atrial fibrillation; Z79.01 Long term (current) use of anticoagulants; I08.1 Rheumatic disorders of both mitral and tricuspid valves; J98.6 Disorders of diaphragm; I25.10 Atherosclerotic heart disease of native coronary artery without angina pectoris; K40.90 Unilateral inguinal hernia, without obstruction or gangrene, not specified as recurrent; M40.209 Unspecified kyphosis, site unspecified; B96.20 Unspecified Escherichia coli [E. coli] as the cause of diseases classified elsewhere; R60.0 Localized edema; Z66 Do not resuscitate
CPT/HCPCS: 36415; 36600; 70450; 71010; 71020; 71250; 71275; 74176; 80048; 80053; 81003; 81015; 82140; 82550; 82553; 82803; 83605; 83690; 83735; 83880; 84145; 84443; 84484; 85014; 85018; 85025; 85379; 85610; 85730; 86140; 87077; 87086; 87186; 93005; 93306; 94660; 94760; 99283; A9270-GY; J0456; J0696; J1160; J1940; J2270; Q9967